=== PATIENT | female | born 1985 | race Caucasian/White ===

== ENCOUNTER 2017-03-15 23:08 | Emergency (ER) | payer OTHER ==
[~2017-03-15] VITALS: Ht 160 cm; Wt 77.1 kg
[~2017-03-15 23:08] MED LIST: ACET325 PO; AMOX500 PO; Augmentin 875-1 EACH PO; Benadryl 5050 MG/ML IV; CEPH500 PO; CIPR250 PO; CLARITIN5 MG PO; CYAN500; CYCL10 PO; DEXA.5; DIPH50 PO; DOCU100 PO; Desyrel50 MG PO; Dexamethasone1 MG PO; FOLI1; GABA600 PO; GAVILAX17 GM PO; HYDACE5 PO; HYDACE5325 PO; HYDHCL25 PO; HYDMOR2 PO; IBUP600 PO; LANS15EC PO; LIDOCAINE5 GM TP; LORA.5 PO; METO10 PO; MULVITMIND PO; MULVITMINE; Milk Of Ma400 MG/5 M PO; NAPR500 PO; Norco 5-325 Ta1 EACH PO; OMEPRAZOLE MAGN20 MG PO; ONDA4 PO; ONDA4ODT PO; ONDA8 PO; ONDA8ODT MM; OSEL75CA PO; Ondansetron Odt8 MG PO; PHENERGAN; PRENATAL PO; PRENATAL VIT; PROC10 PO; PROM12.5S PR; PROM25 PO; PROM25S PR; PYRI50; Pepcid40 MG PO; Percocet 5-3251 EACH PO; Percocet 7.5-31 EACH PO; ROXICODONE5 MG PO; RXHYD5325 PO; SERT50 PO; SIME80CH PO; Tylenol325 MG PO; Verotin-Gr Cap1 EACH PO; WAL DRYL TOP; Zofran Odt4 MG PO; Zofran Odt4 MG SL
[2017-03-16] MEDS ORDERED: Cyclobenzaprine5 MG PO (19:27)
[2017-05-25] MEDS ORDERED: HERCEPTIN150 MG IV (10:26)
[2017-05-28] MEDS ORDERED: ONDA8 (14:22)
[2017-05-28] MEDS ORDERED: METO10 (14:22)
[2017-05-28] MEDS ORDERED: Ativan1 MG (14:23)
[2017-06-06] MEDS ORDERED: ONDA8 PO (17:09)
[2017-06-06] MEDS ORDERED: incentive spirometer (22:26)
[2017-06-06] MEDS ORDERED: PROC10 PO (22:26)
[2017-11-25] MEDS ORDERED: HERCEPTIN150 MG (14:41)
[2017-11-25] MEDS ORDERED: TAMO10 PO (14:41)
[2017-11-25] MEDS ORDERED: COMPAZINE10 MG PO (15:53)
== END 2017-03-16 01:56 | disposition home or self-care (01) ==
LOC: ER 23:08
DX: O99.89 Other specified diseases and conditions complicating pregnancy, childbirth and the puerperium (principal); M79.604 Pain in right leg; M79.605 Pain in left leg; R20.2 Paresthesia of skin; Z88.8 Allergy status to other drugs, medicaments and biological substances; O99.345 Other mental disorders complicating the puerperium; F32.9 Major depressive disorder, single episode, unspecified; Z85.3 Personal history of malignant neoplasm of breast
CPT/HCPCS: 99282

== ENCOUNTER 2017-03-16 16:14 | Emergency (ER) | payer OTHER ==
[~2017-03-16] VITALS: Ht 160 cm; Wt 77.1 kg
[2017-03-16 17:05] LABS: Calcium, Ionized (POC) 1.18 mmol/L (1.10-1.46); Chloride (POC) 101 mmol/L (98-108); Creatinine (POC) 0.7 mg/dL (0.6-1.0); Glucose (ISTAT POC) 103 mg/dL (70-99); Potassium (POC) 4.2 mmol/L (3.5-5.5); Sodium (POC) 140 mmol/L (135-148); Total CO2 (POC) 29 mmol/L (21-32)
[2017-03-16] MEDS ORDERED: Cyclobenzaprine5 MG PO (19:27)
[2017-05-25] MEDS ORDERED: HERCEPTIN150 MG IV (10:26)
[2017-05-28] MEDS ORDERED: ONDA8 (14:22)
[2017-05-28] MEDS ORDERED: METO10 (14:22)
[2017-05-28] MEDS ORDERED: Ativan1 MG (14:23)
[2017-06-06] MEDS ORDERED: ONDA8 PO (17:09)
[2017-06-06] MEDS ORDERED: PROC10 PO (22:26)
[2017-06-06] MEDS ORDERED: incentive spirometer (22:26)
[2017-11-25] MEDS ORDERED: TAMO10 PO (14:41)
[2017-11-25] MEDS ORDERED: HERCEPTIN150 MG (14:41)
[2017-11-25] MEDS ORDERED: COMPAZINE10 MG PO (15:53)
== END 2017-03-16 19:55 | disposition home or self-care (01) ==
LOC: ER 16:14
DX: O90.89 Other complications of the puerperium, not elsewhere classified (principal); M54.40 Lumbago with sciatica, unspecified side; O99.345 Other mental disorders complicating the puerperium; F32.9 Major depressive disorder, single episode, unspecified; Z90.13 Acquired absence of bilateral breasts and nipples; Z91.048 Other nonmedicinal substance allergy status; Z79.899 Other long term (current) drug therapy; Z85.3 Personal history of malignant neoplasm of breast
CPT/HCPCS: 80047; 85014; 96374; 96375; 96376; 99283; J1200; J1642; J1885; Q0163

== ENCOUNTER 2017-03-24 00:53 | Day surgery (SDC) | payer OTHER ==
[~2017-03-24 00:53] MED LIST changes: +Cyclobenzaprine5 MG PO
[2017-03-24 14:13] LABS: BASOPHILS ABSOLUTE AUTO 0.06 K/mm3 (0.00-0.23); BASOPHILS PERCENT AUTO 1 % (0-2); EOSINOPHILS ABSOLUTE AUTO 0.28 K/mm3 (0.00-0.68); EOSINOPHILS PERCENT AUTO 5 % (0-6); Hemoglobin 14.8 g/dL (11.5-16.0); IMMATURE GRAN ABSOLUTE AUTO 0.02 K/mm3 (0.00-0.10); IMMATURE GRAN PERCENT AUTO 0 % (0-1); LYMPHOCYTES ABSOLUTE AUTO 1.41 K/mm3 (0.84-5.20); LYMPHOCYTES PERCENT AUTO 23 % (21-46); MONOCYTES ABSOLUTE AUTO 0.45 K/mm3 (0.16-1.47); MONOCYTES PERCENT AUTO 7 % (4-13); Mean Corpuscular HGB 29.2 pg (26.0-34.0); Mean Corpuscular HGB Conc 33.6 g/dL (31.5-36.5); Mean Corpuscular Volume 87 fL (80-100); Mean Platelet Volume 9.6 fL (9.1-12.4); NEUTROPHILS ABSOLUTE AUTO 3.87 K/mm3 (1.96-9.15); NEUTROPHILS PERCENT AUTO 64 % (41-73); Platelet Count 220 K/mm3 (150-400); RDW Coefficient Variation 11.8 % (11.7-14.2); RDW Standard Deviation 37.9 fL (35.1-46.3); Red Blood Cell Count 5.07 M/mm3 (3.80-5.20); White Blood Cell Count 6.09 K/mm3 (4.00-11.30)
[2017-03-24 14:42] LABS: Percent Saturation 50.9 % (15.0-50.0)
[2017-03-24 15:23] LABS: Alanine Aminotransfer (ALT/SGP 106 U/L (12-78); Albumin/Globulin Ratio 1.2 (0.8-1.8); Alk Phos 133 U/L (50-136); Anion Gap 8 mmol/L (6-16); Aspartate Aminotrans (AST/SGOT 63 U/L (12-37); Bilirubin, Total 0.6 mg/dL (0.1-1.0); Blood Urea Nitrogen 10 mg/dL (8-24); Bun/Creatinine Ratio 18.2 (12.0-20.0); CO2, Blood 25 mmol/L (21-32); Calcium, Blood 8.9 mg/dL (8.5-10.1); Chloride, Blood 105 mmol/L (98-108); Creatinine, Blood 0.55 mg/dL (0.40-1.00); Globulin, Blood 3.3 g/dL (2.2-4.0); Glomerular Filtration Rate >60 (60-); Glucose, Blood 107 mg/dL (70-99); Potassium, Blood 3.8 mmol/L (3.5-5.5); Sodium, Blood 138 mmol/L (136-145); Total Protein, Blood 7.3 g/dL (6.4-8.2)
[2017-05-25] MEDS ORDERED: HERCEPTIN150 MG IV (10:26)
[2017-05-28] MEDS ORDERED: ONDA8 (14:22)
[2017-05-28] MEDS ORDERED: METO10 (14:22)
[2017-05-28] MEDS ORDERED: Ativan1 MG (14:23)
[2017-06-06] MEDS ORDERED: ONDA8 PO (17:09)
[2017-06-06] MEDS ORDERED: incentive spirometer (22:26)
[2017-06-06] MEDS ORDERED: PROC10 PO (22:26)
[2017-11-25] MEDS ORDERED: HERCEPTIN150 MG (14:41)
[2017-11-25] MEDS ORDERED: TAMO10 PO (14:41)
[2017-11-25] MEDS ORDERED: COMPAZINE10 MG PO (15:53)
== END 2017-03-24 13:59 | disposition home or self-care (01) ==
LOC: ATC 00:53
PROVIDERS: Internal Medicine Hematology & Oncology
DX: D50.9 Iron deficiency anemia, unspecified (principal); C50.811 Malignant neoplasm of overlapping sites of right female breast; C77.3 Secondary and unspecified malignant neoplasm of axilla and upper limb lymph nodes; Z15.01 Genetic susceptibility to malignant neoplasm of breast; Z17.0 Estrogen receptor positive status [ER+]; Z90.13 Acquired absence of bilateral breasts and nipples; Z90.722 Acquired absence of ovaries, bilateral; Z90.79 Acquired absence of other genital organ(s)
CPT/HCPCS: 36591; 80053; 82728; 83540; 83550; 85025; J1642

== ENCOUNTER 2017-04-21 00:15 | Day surgery (SDC) | payer OTHER ==
[2017-04-21 09:14] LABS: BASOPHILS ABSOLUTE AUTO 0.04 K/mm3 (0.00-0.23); BASOPHILS PERCENT AUTO 1 % (0-2); EOSINOPHILS ABSOLUTE AUTO 0.13 K/mm3 (0.00-0.68); EOSINOPHILS PERCENT AUTO 3 % (0-6); Hematocrit 38.1 % (33.0-51.0); Hemoglobin 12.7 g/dL (11.5-16.0); IMMATURE GRAN ABSOLUTE AUTO 0.01 K/mm3 (0.00-0.10); IMMATURE GRAN PERCENT AUTO 0 % (0-1); LYMPHOCYTES ABSOLUTE AUTO 1.05 K/mm3 (0.84-5.20); LYMPHOCYTES PERCENT AUTO 25 % (21-46); MONOCYTES ABSOLUTE AUTO 0.34 K/mm3 (0.16-1.47); MONOCYTES PERCENT AUTO 8 % (4-13); Mean Corpuscular HGB 28.5 pg (26.0-34.0); Mean Corpuscular HGB Conc 33.3 g/dL (31.5-36.5); Mean Corpuscular Volume 86 fL (80-100); Mean Platelet Volume 9.8 fL (9.1-12.4); NEUTROPHILS ABSOLUTE AUTO 2.63 K/mm3 (1.96-9.15); NEUTROPHILS PERCENT AUTO 63 % (41-73); Platelet Count 210 K/mm3 (150-400); RDW Coefficient Variation 11.9 % (11.7-14.2); RDW Standard Deviation 37.3 fL (35.1-46.3); Red Blood Cell Count 4.45 M/mm3 (3.80-5.20)
[2017-04-21 09:34] LABS: Alanine Aminotransfer (ALT/SGP 57 U/L (12-78); Albumin, Blood 3.7 g/dL (3.4-5.0); Albumin/Globulin Ratio 1.2 (0.8-1.8); Alk Phos 94 U/L (50-136); Anion Gap 7 mmol/L (6-16); Aspartate Aminotrans (AST/SGOT 27 U/L (12-37); Bilirubin, Total 0.5 mg/dL (0.1-1.0); Blood Urea Nitrogen 16 mg/dL (8-24); Bun/Creatinine Ratio 24.6 (12.0-20.0); CO2, Blood 26 mmol/L (21-32); Calcium, Blood 8.6 mg/dL (8.5-10.1); Chloride, Blood 107 mmol/L (98-108); Creatinine, Blood 0.65 mg/dL (0.40-1.00); Globulin, Blood 3.2 g/dL (2.2-4.0); Glomerular Filtration Rate >60 (60-); Glucose, Blood 93 mg/dL (70-99); Potassium, Blood 3.8 mmol/L (3.5-5.5); Sodium, Blood 140 mmol/L (136-145); Total Protein, Blood 6.9 g/dL (6.4-8.2)
[2017-05-25] MEDS ORDERED: HERCEPTIN150 MG IV (10:26)
[2017-05-28] MEDS ORDERED: ONDA8 (14:22)
[2017-05-28] MEDS ORDERED: METO10 (14:22)
[2017-05-28] MEDS ORDERED: Ativan1 MG (14:23)
[2017-06-06] MEDS ORDERED: ONDA8 PO (17:09)
[2017-06-06] MEDS ORDERED: incentive spirometer (22:26)
[2017-06-06] MEDS ORDERED: PROC10 PO (22:26)
[2017-11-25] MEDS ORDERED: HERCEPTIN150 MG (14:41)
[2017-11-25] MEDS ORDERED: TAMO10 PO (14:41)
[2017-11-25] MEDS ORDERED: COMPAZINE10 MG PO (15:53)
== END 2017-04-21 09:15 | disposition home or self-care (01) ==
LOC: ATC 00:15
PROVIDERS: Internal Medicine Hematology & Oncology
DX: D50.9 Iron deficiency anemia, unspecified (principal); C50.811 Malignant neoplasm of overlapping sites of right female breast; Z15.01 Genetic susceptibility to malignant neoplasm of breast; Z17.0 Estrogen receptor positive status [ER+]; F41.9 Anxiety disorder, unspecified; Z90.13 Acquired absence of bilateral breasts and nipples
CPT/HCPCS: 36591; 80053; 85025

== ENCOUNTER → 2017-04-22 | Outpatient (CLI) | payer OTHER ==
[~2017-04-22] MED LIST changes: +Ativan1 MG; +COMPAZINE10 MG PO; +HERCEPTIN150 MG; +HERCEPTIN150 MG IV; +LORTAB 10 MG-3473 ML PO; +METO10; +ONDA8; +TAMO10 PO; +ZADITOR5 ML BOTHEYES; +incentive spirometer
[2017-04-22 19:23] LABS: BASOPHILS ABSOLUTE AUTO 0.01 K/mm3 (0.00-0.23); BASOPHILS PERCENT AUTO 0 % (0-2); EOSINOPHILS ABSOLUTE AUTO 0.02 K/mm3 (0.00-0.68); EOSINOPHILS PERCENT AUTO 1 % (0-6); Hematocrit 37.8 % (33.0-51.0); IMMATURE GRAN ABSOLUTE AUTO 0.01 K/mm3 (0.00-0.10); IMMATURE GRAN PERCENT AUTO 0 % (0-1); LYMPHOCYTES ABSOLUTE AUTO 0.53 K/mm3 (0.84-5.20); LYMPHOCYTES PERCENT AUTO 14 % (21-46); MONOCYTES ABSOLUTE AUTO 0.37 K/mm3 (0.16-1.47); MONOCYTES PERCENT AUTO 9 % (4-13); Mean Corpuscular HGB 29.1 pg (26.0-34.0); Mean Corpuscular HGB Conc 34.4 g/dL (31.5-36.5); Mean Corpuscular Volume 85 fL (80-100); Mean Platelet Volume 9.9 fL (9.1-12.4); NEUTROPHILS PERCENT AUTO 76 % (41-73); Platelet Count 192 K/mm3 (150-400); RDW Coefficient Variation 12.3 % (11.7-14.2); RDW Standard Deviation 37.2 fL (35.1-46.3); Red Blood Cell Count 4.47 M/mm3 (3.80-5.20); White Blood Cell Count 3.94 K/mm3 (4.00-11.30)
== END | disposition home or self-care (01) ==
LOC: LAB EV 19:20
PROVIDERS: Family Medicine
DX: R11.2 Nausea with vomiting, unspecified (principal)
CPT/HCPCS: 85025

== ENCOUNTER 2017-06-05 00:36 | Day surgery (SDC) | payer OTHER ==
[~2017-06-05 00:36] MED LIST changes: -COMPAZINE10 MG PO; -HERCEPTIN150 MG; -LORTAB 10 MG-3473 ML PO; -TAMO10 PO; -ZADITOR5 ML BOTHEYES; -incentive spirometer
[2017-06-06] MEDS ORDERED: ONDA8 PO (17:09)
[2017-06-06] MEDS ORDERED: incentive spirometer (22:26)
[2017-06-06] MEDS ORDERED: PROC10 PO (22:26)
== END 2017-06-05 10:10 | disposition home or self-care (01) ==
LOC: ATC 00:36
DX: C50.911 Malignant neoplasm of unspecified site of right female breast (principal); Z15.01 Genetic susceptibility to malignant neoplasm of breast; Z17.0 Estrogen receptor positive status [ER+]; D50.9 Iron deficiency anemia, unspecified; F41.9 Anxiety disorder, unspecified; Z90.13 Acquired absence of bilateral breasts and nipples
CPT/HCPCS: 96523; J1642

== ENCOUNTER 2017-06-05 11:10 | Day surgery (SDC) | payer OTHER ==
[~2017-06-05] VITALS: Ht 162.6 cm; Wt 75.6 kg
[2017-06-06] MEDS ORDERED: ONDA8 PO (17:09)
[2017-06-06] MEDS ORDERED: PROC10 PO (22:26)
[2017-06-06] MEDS ORDERED: incentive spirometer (22:26)
== END 2017-06-05 16:40 | disposition home or self-care (01) ==
LOC: ORSCSDS 11:10
PROVIDERS: Obstetrics & Gynecology
PROC: 0U5F4ZZ Destruction of Cul-de-sac, Percutaneous Endoscopic Approach (ICD-10-PCS; principal; 2017-06-05 12:30)
PROC: 0UT04ZZ Resection of Right Ovary, Percutaneous Endoscopic Approach (ICD-10-PCS; principal; 2017-06-05 12:30)
DX: N83.11 Corpus luteum cyst of right ovary (principal); N80.3 Endometriosis of pelvic peritoneum; K66.0 Peritoneal adhesions (postprocedural) (postinfection); Z79.899 Other long term (current) drug therapy; Z85.3 Personal history of malignant neoplasm of breast
CPT/HCPCS: 88305; J0171; J0690; J1170; J1200; J1642; J2250; J2405; J2550; J2710; J3010; J7120

== ENCOUNTER 2017-07-31 00:22 | Day surgery (SDC) | payer OTHER ==
[~2017-07-31 00:22] MED LIST changes: +incentive spirometer
== END 2017-07-31 09:24 | disposition home or self-care (01) ==
LOC: ATC 00:22
DX: C50.911 Malignant neoplasm of unspecified site of right female breast (principal); Z15.01 Genetic susceptibility to malignant neoplasm of breast; Z17.0 Estrogen receptor positive status [ER+]
CPT/HCPCS: 96523; J1642

== ENCOUNTER 2017-08-21 18:54 | Emergency (ER) | payer OTHER ==
[~2017-08-21] VITALS: Ht 162.6 cm; Wt 72.6 kg
[2017-08-21] MEDS ORDERED: DOCU100 PO (19:19)
[2017-08-21] MEDS ORDERED: PROM25 PO (19:19)
[2017-08-21] MEDS ORDERED: CEPH500 PO (19:20)
[2017-08-21] MEDS ORDERED: LORTAB 10 MG-3473 ML PO (21:09)
[2017-08-22] MEDS ORDERED: ZADITOR5 ML BOTHEYES (17:46)
== END 2017-08-21 21:27 | disposition home or self-care (01) ==
LOC: ER 18:54
DX: G89.18 Other acute postprocedural pain (principal); N64.4 Mastodynia; Z91.048 Other nonmedicinal substance allergy status; Z79.899 Other long term (current) drug therapy; Z79.2 Long term (current) use of antibiotics; F32.9 Major depressive disorder, single episode, unspecified; F41.9 Anxiety disorder, unspecified
CPT/HCPCS: J1200; J1642; J2405; J3010

== ENCOUNTER 2017-08-22 13:07 | Emergency (ER) | payer OTHER ==
[~2017-08-22] VITALS: Ht 162.6 cm; Wt 72.6 kg
[~2017-08-22 13:07] MED LIST changes: +LORTAB 10 MG-3473 ML PO
[2017-08-22 15:21] LABS: BASOPHILS ABSOLUTE AUTO 0.04 K/mm3 (0.00-0.23); BASOPHILS PERCENT AUTO 1 % (0-2); EOSINOPHILS ABSOLUTE AUTO 0.28 K/mm3 (0.00-0.68); EOSINOPHILS PERCENT AUTO 4 % (0-6); Hematocrit 36.3 % (33.0-51.0); Hemoglobin 12.6 g/dL (11.5-16.0); IMMATURE GRAN ABSOLUTE AUTO 0.03 K/mm3 (0.00-0.10); IMMATURE GRAN PERCENT AUTO 0 % (0-1); LYMPHOCYTES ABSOLUTE AUTO 1.29 K/mm3 (0.84-5.20); LYMPHOCYTES PERCENT AUTO 17 % (21-46); MONOCYTES ABSOLUTE AUTO 0.53 K/mm3 (0.16-1.47); MONOCYTES PERCENT AUTO 7 % (4-13); Mean Corpuscular HGB 30.4 pg (26.0-34.0); Mean Corpuscular HGB Conc 34.7 g/dL (31.5-36.5); Mean Corpuscular Volume 88 fL (80-100); Mean Platelet Volume 9.9 fL (9.1-12.4); NEUTROPHILS ABSOLUTE AUTO 5.62 K/mm3 (1.96-9.15); NEUTROPHILS PERCENT AUTO 72 % (41-73); Platelet Count 198 K/mm3 (150-400); RDW Coefficient Variation 11.6 % (11.7-14.2); RDW Standard Deviation 37.1 fL (35.1-46.3); Red Blood Cell Count 4.14 M/mm3 (3.80-5.20); White Blood Cell Count 7.79 K/mm3 (4.00-11.30)
[2017-08-22 15:47] LABS: Alanine Aminotransfer (ALT/SGP 44 U/L (12-78); Albumin, Blood 3.9 g/dL (3.4-5.0); Albumin/Globulin Ratio 1.2 (0.8-1.8); Alk Phos 68 U/L (50-136); Anion Gap 6 mmol/L (6-16); Aspartate Aminotrans (AST/SGOT 43 U/L (12-37); Bilirubin, Total 0.4 mg/dL (0.1-1.0); Blood Urea Nitrogen 9 mg/dL (8-24); Bun/Creatinine Ratio 12.6 (12.0-20.0); CO2, Blood 28 mmol/L (21-32); Calcium, Blood 9.1 mg/dL (8.5-10.1); Chloride, Blood 105 mmol/L (98-108); Creatinine, Blood 0.71 mg/dL (0.40-1.00); Globulin, Blood 3.3 g/dL (2.2-4.0); Glomerular Filtration Rate >60 (60-); Glucose, Blood 96 mg/dL (70-99); Potassium, Blood 3.9 mmol/L (3.5-5.5); Sodium, Blood 139 mmol/L (136-145); Total Protein, Blood 7.2 g/dL (6.4-8.2)
[2017-08-22] MEDS ORDERED: ZADITOR5 ML BOTHEYES (17:46)
== END 2017-08-22 18:00 | disposition home or self-care (01) ==
LOC: ER 13:07
PROVIDERS: Physician Assistant
DX: G89.18 Other acute postprocedural pain (principal); N64.4 Mastodynia; H10.13 Acute atopic conjunctivitis, bilateral; F32.9 Major depressive disorder, single episode, unspecified; Z91.048 Other nonmedicinal substance allergy status; Z79.899 Other long term (current) drug therapy
CPT/HCPCS: 80053; 85025; J1200; J1642; J2405; J2550; J3010; J7030

== ENCOUNTER 2017-09-29 08:07 | Day surgery (SDC) | payer OTHER ==
[~2017-09-29] VITALS: Ht 162.6 cm; Wt 64.4 kg
[~2017-09-29 08:07] MED LIST changes: +ZADITOR5 ML BOTHEYES
== END 2017-09-29 10:40 | disposition home or self-care (01) ==
LOC: ORSCSDS 08:07
PROVIDERS: Internal Medicine Gastroenterology
PROC: 0DJD8ZZ Inspection of Lower Intestinal Tract, Via Natural or Artificial Opening Endoscopic (ICD-10-PCS; principal; 2017-09-29 09:45)
DX: Z86.010 Personal history of colon polyps (principal); K64.4 Residual hemorrhoidal skin tags; Z85.3 Personal history of malignant neoplasm of breast; Z79.899 Other long term (current) drug therapy
CPT/HCPCS: J1200; J7120

== ENCOUNTER 2017-10-20 00:01 | Day surgery (SDC) | payer OTHER ==
[2017-10-20 08:30] LABS: BASOPHILS ABSOLUTE AUTO 0.03 K/mm3 (0.00-0.23); BASOPHILS PERCENT AUTO 1 % (0-2); EOSINOPHILS ABSOLUTE AUTO 0.14 K/mm3 (0.00-0.68); EOSINOPHILS PERCENT AUTO 3 % (0-6); Hematocrit 34.4 % (33.0-51.0); Hemoglobin 11.8 g/dL (11.5-16.0); IMMATURE GRAN ABSOLUTE AUTO 0.01 K/mm3 (0.00-0.10); IMMATURE GRAN PERCENT AUTO 0 % (0-1); LYMPHOCYTES ABSOLUTE AUTO 0.91 K/mm3 (0.84-5.20); LYMPHOCYTES PERCENT AUTO 22 % (21-46); MONOCYTES ABSOLUTE AUTO 0.31 K/mm3 (0.16-1.47); MONOCYTES PERCENT AUTO 8 % (4-13); Mean Corpuscular HGB 30.6 pg (26.0-34.0); Mean Corpuscular HGB Conc 34.3 g/dL (31.5-36.5); Mean Corpuscular Volume 89 fL (80-100); Mean Platelet Volume 9.6 fL (9.1-12.4); NEUTROPHILS ABSOLUTE AUTO 2.67 K/mm3 (1.96-9.15); NEUTROPHILS PERCENT AUTO 66 % (41-73); Platelet Count 177 K/mm3 (150-400); RDW Coefficient Variation 12.5 % (11.7-14.2); RDW Standard Deviation 41.2 fL (35.1-46.3); Red Blood Cell Count 3.85 M/mm3 (3.80-5.20); White Blood Cell Count 4.07 K/mm3 (4.00-11.30)
[2017-10-20 08:52] LABS: Alanine Aminotransfer (ALT/SGP 31 U/L (12-78); Albumin, Blood 3.5 g/dL (3.4-5.0); Albumin/Globulin Ratio 1.3 (0.8-1.8); Alk Phos 55 U/L (50-136); Anion Gap 8 mmol/L (6-16); Aspartate Aminotrans (AST/SGOT 18 U/L (12-37); Bilirubin, Total 0.6 mg/dL (0.1-1.0); Blood Urea Nitrogen 12 mg/dL (8-24); Bun/Creatinine Ratio 18.4 (12.0-20.0); CO2, Blood 26 mmol/L (21-32); Calcium, Blood 7.7 mg/dL (8.5-10.1); Chloride, Blood 110 mmol/L (98-108); Creatinine, Blood 0.65 mg/dL (0.40-1.00); Globulin, Blood 2.7 g/dL (2.2-4.0); Glomerular Filtration Rate >60 (60-); Glucose, Blood 97 mg/dL (70-99); Potassium, Blood 3.5 mmol/L (3.5-5.5); Sodium, Blood 144 mmol/L (136-145); Total Protein, Blood 6.2 g/dL (6.4-8.2)
== END 2017-10-20 08:10 | disposition home or self-care (01) ==
LOC: ATC 00:01
PROVIDERS: Internal Medicine Hematology & Oncology
DX: C50.811 Malignant neoplasm of overlapping sites of right female breast (principal); Z15.01 Genetic susceptibility to malignant neoplasm of breast; Z17.0 Estrogen receptor positive status [ER+]
CPT/HCPCS: 36591; 80053; 85025; J1642

== ENCOUNTER 2018-03-17 00:13 | Day surgery (SDC) | payer OTHER ==
[~2018-03-17 00:13] MED LIST changes: +COMPAZINE10 MG PO; +HERCEPTIN150 MG; +TAMO10 PO
[2018-03-17 14:31] LABS: BASOPHILS ABSOLUTE AUTO 0.04 K/mm3 (0.00-0.23); BASOPHILS PERCENT AUTO 1 % (0-2); EOSINOPHILS ABSOLUTE AUTO 0.05 K/mm3 (0.00-0.68); EOSINOPHILS PERCENT AUTO 1 % (0-6); Hemoglobin 12.8 g/dL (11.5-16.0); IMMATURE GRAN PERCENT AUTO 0 % (0-1); LYMPHOCYTES ABSOLUTE AUTO 1.11 K/mm3 (0.84-5.20); LYMPHOCYTES PERCENT AUTO 27 % (21-46); MONOCYTES ABSOLUTE AUTO 0.35 K/mm3 (0.16-1.47); MONOCYTES PERCENT AUTO 9 % (4-13); Mean Corpuscular HGB 29.8 pg (26.0-34.0); Mean Corpuscular HGB Conc 32.8 g/dL (31.5-36.5); Mean Corpuscular Volume 91 fL (80-100); Mean Platelet Volume 9.8 fL (9.1-12.4); NEUTROPHILS ABSOLUTE AUTO 2.53 K/mm3 (1.96-9.15); NEUTROPHILS PERCENT AUTO 62 % (41-73); Platelet Count 245 K/mm3 (150-400); RDW Coefficient Variation 11.3 % (11.7-14.2); White Blood Cell Count 4.08 K/mm3 (4.00-11.30)
[2018-03-17 14:59] LABS: Alanine Aminotransfer (ALT/SGP 38 U/L (12-78); Albumin, Blood 4.4 g/dL (3.4-5.0); Albumin/Globulin Ratio 1.5 (0.8-1.8); Alk Phos 46 U/L (50-136); Anion Gap 9 mmol/L (6-16); Aspartate Aminotrans (AST/SGOT 22 U/L (12-37); Bilirubin, Total 0.9 mg/dL (0.1-1.0); Blood Urea Nitrogen 7 mg/dL (8-24); Bun/Creatinine Ratio 9.5 (12.0-20.0); CO2, Blood 26 mmol/L (21-32); Calcium, Blood 9.1 mg/dL (8.5-10.1); Chloride, Blood 106 mmol/L (98-108); Creatinine, Blood 0.74 mg/dL (0.40-1.00); Globulin, Blood 2.9 g/dL (2.2-4.0); Glomerular Filtration Rate >60 (60-); Glucose, Blood 79 mg/dL (70-99); Potassium, Blood 3.7 mmol/L (3.5-5.5); Sodium, Blood 141 mmol/L (136-145); Total Protein, Blood 7.3 g/dL (6.4-8.2)
[2018-03-22] MEDS ORDERED: Zithromax250 MG PO (23:29)
[2018-03-22] MEDS ORDERED: BENZ100A PO (23:30)
== END 2018-03-17 14:25 | disposition home or self-care (01) ==
LOC: ATC 00:13
PROVIDERS: Internal Medicine Hematology & Oncology
DX: C50.811 Malignant neoplasm of overlapping sites of right female breast (principal); Z15.01 Genetic susceptibility to malignant neoplasm of breast; Z17.0 Estrogen receptor positive status [ER+]
CPT/HCPCS: 36591; 80053; 85025; J1642

== ENCOUNTER → 2018-03-22 | Outpatient (CLI) | payer OTHER ==
[~2018-03-22] MED LIST changes: +**INCOMPLETE MED REC; +ALBU90OI INH; +ASCO500 PO; +AZIT500 PO; +Acephen650 MG PR; +Advil Migraine200 MG PO; +Allergy Medicat25 MG PO; +BENZ100A PO; +Benadryl Itch28.3 G1 TOP; +CEFP200 PO; +Ferrous Sulfat325 M2 PO; +METO5A PO; +Mucinex1200 MG PO; +PROC5 PO; +ROBITUSSIN COU237 ML PO; +Zithromax250 MG PO
[2018-03-22 10:07] LABS: Hematocrit 36.5 % (33.0-51.0); Hemoglobin 12.2 g/dL (11.5-16.0); Mean Corpuscular HGB 29.3 pg (26.0-34.0); Mean Corpuscular HGB Conc 33.4 g/dL (31.5-36.5); Platelet Count 173 K/mm3 (150-400); RDW Coefficient Variation 11.6 % (11.7-14.2); RDW Standard Deviation 37.3 fL (35.1-46.3); Red Blood Cell Count 4.16 M/mm3 (3.80-5.20); White Blood Cell Count 10.13 K/mm3 (4.00-11.30)
[2018-03-22 10:20] LABS: Mean Corpuscular Volume 88 fL (80-100)
[2018-03-22 10:22] LABS: BAND PERCENT MAN 10 % (0-8); BASOPHILS PERCENT MAN 0 % (0-2); EOSINOPHILS PERCENT MAN 0 % (0-6); LYMPHOCYTES % ATYPICAL MANUAL 1 % (0-0); MONOCYTES PERCENT MAN 5 % (4-13); NEUTROPHILS ABSOLUTE MAN 9.52 K/mm3 (1.96-9.15); SEG NEUTROPHILS PERCENT MAN 84 % (41-73); TOTAL CELLS COUNTED 100
[2018-03-22 10:36] LABS: Alanine Aminotransfer (ALT/SGP 28 U/L (12-78); Albumin, Blood 4.2 g/dL (3.4-5.0); Albumin/Globulin Ratio 1.8 (0.8-1.8); Alk Phos 49 U/L (40-126); Anion Gap 15 mmol/L (6-16); Aspartate Aminotrans (AST/SGOT 18 U/L (12-37); Bilirubin, Total 0.6 mg/dL (0.1-1.0); Blood Urea Nitrogen 9 mg/dL (8-24); Bun/Creatinine Ratio 12.5 (12.0-20.0); CO2, Blood 23 mmol/L (21-32); Calcium, Blood 8.3 mg/dL (8.5-10.1); Chloride, Blood 100 mmol/L (98-108); Creatinine, Blood 0.72 mg/dL (0.40-1.00); Globulin, Blood 2.4 g/dL (2.2-4.0); Glomerular Filtration Rate >60 (60-); Glucose, Blood 94 mg/dL (70-99); Potassium, Blood 3.6 mmol/L (3.5-5.5); Sodium, Blood 138 mmol/L (136-145); Total Protein, Blood 6.6 g/dL (6.4-8.2)
== END | disposition home or self-care (01) ==
LOC: LAB SHORT 10:03 → LAB EV 10:03
PROVIDERS: Physician Assistant
DX: R50.9 Fever, unspecified (principal)
CPT/HCPCS: 80053; 85025; 87040

== ENCOUNTER 2018-03-23 15:02 | Inpatient (IN) | payer OTHER ==
[~2018-03-23] VITALS: Ht 162.6 cm; Wt 66.4 kg
[~2018-03-23 15:02] MED LIST changes: -**INCOMPLETE MED REC; -ALBU90OI INH; -ASCO500 PO; -AZIT500 PO; -Acephen650 MG PR; -Advil Migraine200 MG PO; -Allergy Medicat25 MG PO; -Benadryl Itch28.3 G1 TOP; -CEFP200 PO; -Ferrous Sulfat325 M2 PO; -METO5A PO; -Mucinex1200 MG PO; -PROC5 PO; -ROBITUSSIN COU237 ML PO
[2018-03-23 15:50] LABS: BASOPHILS ABSOLUTE AUTO 0.02 K/mm3 (0.00-0.23); BASOPHILS PERCENT AUTO 0 % (0-2); EOSINOPHILS ABSOLUTE AUTO 0.04 K/mm3 (0.00-0.68); EOSINOPHILS PERCENT AUTO 1 % (0-6); Hematocrit 33.9 % (33.0-51.0); Hemoglobin 10.8 g/dL (11.5-16.0); IMMATURE GRAN ABSOLUTE AUTO 0.01 K/mm3 (0.00-0.10); IMMATURE GRAN PERCENT AUTO 0 % (0-1); LYMPHOCYTES ABSOLUTE AUTO 0.89 K/mm3 (0.84-5.20); LYMPHOCYTES PERCENT AUTO 14 % (21-46); MONOCYTES ABSOLUTE AUTO 0.43 K/mm3 (0.16-1.47); MONOCYTES PERCENT AUTO 7 % (4-13); Mean Corpuscular HGB 29.5 pg (26.0-34.0); Mean Corpuscular HGB Conc 31.9 g/dL (31.5-36.5); Mean Corpuscular Volume 93 fL (80-100); Mean Platelet Volume 10.1 fL (9.1-12.4); NEUTROPHILS ABSOLUTE AUTO 4.98 K/mm3 (1.96-9.15); NEUTROPHILS PERCENT AUTO 78 % (41-73); Platelet Count 167 K/mm3 (150-400); RDW Coefficient Variation 11.5 % (11.7-14.2); RDW Standard Deviation 38.9 fL (35.1-46.3); Red Blood Cell Count 3.66 M/mm3 (3.80-5.20); White Blood Cell Count 6.37 K/mm3 (4.00-11.30)
[2018-03-23 16:14] LABS: Alanine Aminotransfer (ALT/SGP 40 U/L (12-78); Albumin, Blood 3.5 g/dL (3.4-5.0); Albumin/Globulin Ratio 1.2 (0.8-1.8); Alk Phos 51 U/L (50-136); Anion Gap 5 mmol/L (6-16); Aspartate Aminotrans (AST/SGOT 33 U/L (12-37); Bilirubin, Total 0.2 mg/dL (0.1-1.0); Blood Urea Nitrogen 5 mg/dL (8-24); Bun/Creatinine Ratio 7.5 (12.0-20.0); CO2, Blood 27 mmol/L (21-32); Calcium, Blood 8.1 mg/dL (8.5-10.1); Chloride, Blood 110 mmol/L (98-108); Creatinine, Blood 0.67 mg/dL (0.40-1.00); Globulin, Blood 2.8 g/dL (2.2-4.0); Glomerular Filtration Rate >60 (60-); Glucose, Blood 87 mg/dL (70-99); Potassium, Blood 3.5 mmol/L (3.5-5.5); Sodium, Blood 142 mmol/L (136-145); Total Protein, Blood 6.3 g/dL (6.4-8.2)
[2018-03-23] MEDS ORDERED: **INCOMPLETE MED REC (18:08)
[2018-03-23 23:12] LABS: Adenovirus Not Detected (NOT DETECT); Bordetella pertussis Not Detected (NOT DETECT); Chlamydophila pneumoniae Not Detected (NOT DETECT); Coronavirus 229E Not Detected (NOT DETECT); Coronavirus HKU1 Not Detected (NOT DETECT); Coronavirus NL63 Detected (NOT DETECT); Coronavirus OC43 Not Detected (NOT DETECT); Human Metapneumovirus Not Detected (NOT DETECT); Human Rhinovirus/Enterovirus Not Detected (NOT DETECT); Influenza A Not Detected (NOT DETECT); Influenza A/2009-H1 Not Detected (NOT DETECT); Influenza A/H1 Not Detected (NOT DETECT); Influenza A/H3 Not Detected (NOT DETECT); Influenza B Not Detected (NOT DETECT); Mycoplasma pneumoniae Not Detected (NOT DETECT); Parainfluenza Virus 1 Not Detected (NOT DETECT); Parainfluenza Virus 2 Not Detected (NOT DETECT); Parainfluenza Virus 3 Not Detected (NOT DETECT); Parainfluenza Virus 4 Not Detected (NOT DETECT); Respiratory Syncytial Virus Not Detected (NOT DETECT)
--- NOTE | 2018-03-23 23:12 | NUR ---
PT VERY UPSET THAT MD WILL NOT ORDER HER ANY NARCOTIC IV PAIN MEDICATION. SHE REPORTS THAT SHE IS VERY ACHEY ALL OVER BODY. THIS ACHINESS IS NOT NEW TO HER SHE IS ON A POST CHEMO MEDICATION THAT CAUSES BODY ACHES. BUT THE PT REPORTS THAT IT IS WORSE AT THIS TIME THAN NORMALLY. NOTIFIED KIM MADRID WHO GAVE ORDERS FOR PO TYLENOL. PT REFUSED TO TAKE ANY MEDICATION ORALLY AND PT HAD RECIEVED A DOSE OF TORADOL IN THE EMERGENCY DEPARTMENT THAT WAS INEFFECTIVE PER PT. PT PRODUCED HOME MEDICATION BOTTLE WITH PRESCRIPTION FOR DILAUDID PO BUT THE PRESCRIPTION WAS FROM 2017. CALLED KIM MADRID AGAIN WHO STATED THAT NARCOTIC PAIN MEDICATION WOULD BE INAPPROPRIATE FOR THIS PT AT THIS TIME. WHEN PT WAS GOING THROUGH CHEMO FOR BREAST CA IT WOULD HAVE BEEN APPROPRIATE BUT SINCE PT HAS NOT HAD CHEMO FOR 1 YEAR AND DOES NOT HAVE ANY PROOF OF ACTIVE PRESCRIPTIONS FOR NARCOTICS KIM MADRID FELT IT INAPPROPRIATE TO ORDER ANY NARCOTICS FOR PAIN MANAGEMENT AT THIS TIME. INFORMED PT OF THIS. PT UPSET BUT COOPERATIVE AT THIS TIME.
--- NOTE | 2018-03-23 23:47 | NUR ---
KIM CLERICAL AIDE TEACHER CALLED TO FOLLOWUP ON HOW PT WAS FEELING. NEW ORDERS FOR DILAUDID 1 MG IV Q 2 HRS NEEDED. PT VERY UNCOMFORTABLE, REPORTING 7/10 "ALL OVER" PAIN CONTINUING TO COUGH AND AT TIMES DRY HEAVE. MEDICATED PT W/ 1 MG IV DILAUDID AND 4 MG IV ZOFRAN. WILL CONTINUE TO MONITOR.
[2018-03-24 04:54] LABS: BASOPHILS ABSOLUTE AUTO 0.02 K/mm3 (0.00-0.23); BASOPHILS PERCENT AUTO 1 % (0-2); EOSINOPHILS ABSOLUTE AUTO 0.06 K/mm3 (0.00-0.68); EOSINOPHILS PERCENT AUTO 2 % (0-6); Hematocrit 31.3 % (33.0-51.0); Hemoglobin 9.8 g/dL (11.5-16.0); IMMATURE GRAN ABSOLUTE AUTO 0.01 K/mm3 (0.00-0.10); IMMATURE GRAN PERCENT AUTO 0 % (0-1); LYMPHOCYTES ABSOLUTE AUTO 1.09 K/mm3 (0.84-5.20); LYMPHOCYTES PERCENT AUTO 27 % (21-46); MONOCYTES ABSOLUTE AUTO 0.49 K/mm3 (0.16-1.47); MONOCYTES PERCENT AUTO 12 % (4-13); Mean Corpuscular HGB 29.3 pg (26.0-34.0); Mean Corpuscular HGB Conc 31.3 g/dL (31.5-36.5); Mean Corpuscular Volume 93 fL (80-100); Mean Platelet Volume 10.1 fL (9.1-12.4); NEUTROPHILS ABSOLUTE AUTO 2.45 K/mm3 (1.96-9.15); NEUTROPHILS PERCENT AUTO 59 % (41-73); Platelet Count 146 K/mm3 (150-400); RDW Coefficient Variation 11.5 % (11.7-14.2); RDW Standard Deviation 39.7 fL (35.1-46.3); Red Blood Cell Count 3.35 M/mm3 (3.80-5.20); White Blood Cell Count 4.12 K/mm3 (4.00-11.30)
--- NOTE | 2018-03-24 05:14 | NUR ---
SHIFT SUMMARY PT NEW ED ADMIT THIS EVENING. A/O. AMBULATES INDEPENDENTLY. OVERALL FEELING MISERABLE WITH BODY ACHES AND NAUSEA. SEE PREVIOUS NOTES. PAIN AND ANTIEMETIC MEDICATION GIVEN PER ORDERS. PT HAS HX OF BREAST CA WITH DOUBLE MASTECTOMY WITH RECONSTRUCTION AND CHEMO APPROX 1 YEAR AGO. PORT TO L CHEST WALL ACCESSED IN OUR ED ON Thursday03/22/18. SKIN RED AND IRRITATED BY TEGADERM DRESSING OVER METAPORT. THIS IS COMMON FOR PT AND HAPPENS EVERYTIME PORT IS ACCESSED. BENADRYL CREAM PLACED ON SKIN AROUND DRESSING AND APPEARS TO HAVE HELPED. PT HAS BEEN NAUSEATED OFF AND ON THROUGHOUT THE SHIFT BUT NO EMESIS SO FAR. VOIDING FINE. LOW GRADE FEVER THAT HAS DECREASED THIS AM. PT REFUSED ORAL TYLENOL. SKIN DID NOT FEEL HOT TO TOUCH. OTHERWISE VSS. PT RESTING IN BED AT THIS TIME.
[2018-03-24 05:17] LABS: Alanine Aminotransfer (ALT/SGP 28 U/L (12-78); Albumin/Globulin Ratio 1.2 (0.8-1.8); Alk Phos 41 U/L (50-136); Anion Gap 8 mmol/L (6-16); Aspartate Aminotrans (AST/SGOT 21 U/L (12-37); Bilirubin, Total 0.4 mg/dL (0.1-1.0); Blood Urea Nitrogen 5 mg/dL (8-24); Bun/Creatinine Ratio 7.3 (12.0-20.0); CO2, Blood 25 mmol/L (21-32); Calcium, Blood 7.5 mg/dL (8.5-10.1); Chloride, Blood 113 mmol/L (98-108); Creatinine, Blood 0.69 mg/dL (0.40-1.00); Globulin, Blood 2.5 g/dL (2.2-4.0); Glomerular Filtration Rate >60 (60-); Glucose, Blood 69 mg/dL (70-99); Potassium, Blood 3.6 mmol/L (3.5-5.5); Sodium, Blood 146 mmol/L (136-145); Total Protein, Blood 5.5 g/dL (6.4-8.2)
--- NOTE | 2018-03-24 09:03 | NUR ---
pt laying in bed with coat and stocking cap on, she feels like she is cold, but she has a low grade temp. a/ox3, pleasant and cooperative with care, follows commands well, reports she feels like she has bone pain, and hurts all over, the dilaudid helps a bit but only for a short time, and constant nausia, not activly vomiting, but meds are not controlling that either, refusing to eat or take oral meds for fear of vomiting, lungs are clear t/o resp even and unlabored, harsh wet nonproductive cough noted, hrr, no edema noted, ppp+2, cap refill <3 sec, vs stable, afebrile, iv is mediport to left chest site is clear and infusing ns as ordered, bt x4, reports last bm yesterday, but has been a few days since eating anything, voids without diff, skin c/w/d, anthony, nakul, call light in reach.
--- NOTE | 2018-03-24 11:59 | NUR ---
pt had a shower, doing ok, states her pain never gets below a 5/10, Istrate in to see her. started clinimix for nutrition, medicated for pain again. no further changes. call light in reach.
--- NOTE | 2018-03-24 15:16 | NUR ---
Pt gave verbal permission for student to provide care on 03/25/18
--- NOTE | 2018-03-24 16:57 | NUR ---
FEVER PATIENT HAD FEVER OF 102.1. PATIENT DECLINED TYLENOL BECAUSE OF NAUSEA. WILL RECHECK TEMPERATURE.
--- NOTE | 2018-03-24 19:19 | NUR ---
SHIFT SUMMARY NO ACUTE CHANGES. PATIENT MEDICATED SEVERAL TIME DURING HSIFT FOR PAIN AND NAUSEA. PATIENT HAD FEVER OF 102.1 THIS AFTERNOON, DECLINED ORAL TYLENOL BUT IV TORADOL GIVEN. PATIENT INDEPENDENT IN ROOM AND DENIES SHORTNESS OF BREATH. REPORT GIVEN TO MAURICIO VARELA.
--- NOTE | 2018-03-25 04:13 | NUR ---
SHIFT SUMMARY A/O X4, ABLE TO MAKE NEEDS KNOWN. COOPERATIVE WITH CARE. CALLS AND ANSWERS QUESTIONS APPROPRIATELY. C/O PAIN THAT IS GENERALIZED RATED 7/10; MEDICATED PER EMAR. C/O NAUSEA AND ITCHING T/O SHIFT; MEDICATED PER EMAR. DID NOT REST MUCH OVERNIGHT. VSS AND REMAINED FEBRILE T/O SHIFT. C/O BEING COLD MUCH OF SHIFT. BED IN LOWEST POSITION. CALL LIGHT AND BELONGINGS WITHIN REACH. WCTM. REPORT TO ONCOMING RN.
[2018-03-25 05:19] LABS: BASOPHILS ABSOLUTE AUTO 0.03 K/mm3 (0.00-0.23); BASOPHILS PERCENT AUTO 1 % (0-2); EOSINOPHILS ABSOLUTE AUTO 0.11 K/mm3 (0.00-0.68); EOSINOPHILS PERCENT AUTO 3 % (0-6); Hematocrit 32.2 % (33.0-51.0); Hemoglobin 10.3 g/dL (11.5-16.0); IMMATURE GRAN ABSOLUTE AUTO 0.02 K/mm3 (0.00-0.10); IMMATURE GRAN PERCENT AUTO 1 % (0-1); LYMPHOCYTES ABSOLUTE AUTO 1.46 K/mm3 (0.84-5.20); LYMPHOCYTES PERCENT AUTO 34 % (21-46); MONOCYTES ABSOLUTE AUTO 0.46 K/mm3 (0.16-1.47); MONOCYTES PERCENT AUTO 11 % (4-13); Mean Corpuscular Volume 91 fL (80-100); Mean Platelet Volume 10.2 fL (9.1-12.4); NEUTROPHILS ABSOLUTE AUTO 2.22 K/mm3 (1.96-9.15); NEUTROPHILS PERCENT AUTO 52 % (41-73); Platelet Count 178 K/mm3 (150-400); RDW Coefficient Variation 11.1 % (11.7-14.2); RDW Standard Deviation 37.2 fL (35.1-46.3); Red Blood Cell Count 3.55 M/mm3 (3.80-5.20)
--- NOTE | 2018-03-25 11:24 | NUR ---
PATIENT TEARFUL, REQUESTING MORE PAIN MEDICATIONS. DR. SOLIS AT BEDSIDE PROVIDING INSTRUCTIONS ON PLAN OF CARE FOR DX OF PNEUMONIA. PATIENT D/C FROM DILAUDID. DR. SOLIS STATED THAT DILUADID IS NOT A REOCOMMENDED TX FOR THE DISCOMFORT CAUSED FROM PNEUMONIA. ENCOURAGED CONTINUE FLUID INTAKE AN SUPPLEMENTAL CLINIMIX. PATIENT REQUESTING TO HAVE A BREAK FROM FLUIDS AT THIS TIME.
--- NOTE | 2018-03-25 17:56 | NUR ---
WENT TO [facility]ANG PATIENT ANTIBIOTICS OFFERED REGLAN AND NSAIDS. PATIENT TOO ASLEEP TO WAKE TO ANSWER QUESTIONS. PATIENT IS BUNDLED UP IN MULTIPLE LAYERS, AT THIS TIME NO FEVER.
--- NOTE | 2018-03-25 18:45 | NUR ---
SHIFT SUMMARY PATIENT HAS REQUESTED PAIN MEDS FOR OVERALL BODY ACHES TODAY. (SEE PREVIOUS NOTES). PATIENT CURRENTLY SLEEPING ON AND OFF IN HER ROOM. MEDICATED PER EMAR. MEDICATED FOR NAUSEA AND REDNESS, ITCHING TO HER CHEST. IV ANTIBIOTICS RUNNING AT THIS TIME.
--- NOTE | 2018-03-26 05:02 | NUR ---
SHIFT SUMMARY A/O X4, ABLE TO MAKE NEEDS KNOWN. COOPERATIVE WITH CARE. CALLS AND ANSWERS QUESTIONS APPROPRIATELY. C/O PAIN/DISCOMFORT RATING PAIN 7/10; MEDICATED PER EMAR. C/O NAUSEA WITHOUT EMESIS; ALSO MEDICATED PER EMAR. APPEARED TO SLEEP MUCH OF SHIFT. INDEPENDENT IN THE ROOM. NO PO INTAKE THIS SHIFT. VSS/AFEBRILE. NO ACUTE CHANGES OVERNIGHT. BED IN LOWEST POSITION. CALL LIGHT IN REACH. WCTM. REPORT TO ONCOMING RN.
--- NOTE | 2018-03-26 18:37 | NUR ---
SHIFT SUMMARY: NO ACUTE CHANGES TO REPORT THIS SHIFT. PT A&O; ANXIOUS; COOPERATIVE WITH CARE. MEDICATED FOR NAUSEA W/O VOMITING PER EMAR. TYLENOL NV GIVEN THIS SHIFT; PT STATES TORADOL "DOESN'T WORK." CLINIMIX & NS CONTINUING; IV ABX CONTINUIG. WCTM.
[2018-03-27 05:38] LABS: Hematocrit 34.8 % (33.0-51.0); Hemoglobin 11.4 g/dL (11.5-16.0); Mean Corpuscular HGB 28.8 pg (26.0-34.0); Mean Corpuscular HGB Conc 32.8 g/dL (31.5-36.5); Platelet Count 195 K/mm3 (150-400); RDW Standard Deviation 35.7 fL (35.1-46.3); Red Blood Cell Count 3.96 M/mm3 (3.80-5.20); White Blood Cell Count 3.27 K/mm3 (4.00-11.30)
[2018-03-27 05:47] LABS: Mean Corpuscular Volume 88 fL (80-100)
[2018-03-27 06:12] LABS: Anion Gap 9 mmol/L (6-16); Blood Urea Nitrogen 13 mg/dL (8-24); Bun/Creatinine Ratio 20.9 (12.0-20.0); CO2, Blood 24 mmol/L (21-32); Calcium, Blood 8.1 mg/dL (8.5-10.1); Chloride, Blood 110 mmol/L (98-108); Creatinine, Blood 0.62 mg/dL (0.40-1.00); Glomerular Filtration Rate >60 (60-); Glucose, Blood 82 mg/dL (70-99); Potassium, Blood 3.9 mmol/L (3.5-5.5); Sodium, Blood 143 mmol/L (136-145)
--- NOTE | 2018-03-27 06:20 | NUR ---
SHIFT SUMMARY PT IS A 32 Y/O FEMALE, ADMITTED FOR PNA. SHE IS A&O X 4, AND INDEPENDENT IN THE ROOM. THE PT REPORTED NAUSEA DURING THE NIGHT, AND WAS MEDICATED X 2 WITH PRN PHENERGAN. SHE ALSO STATED THAT SHE WAS UNABLE TO KEEP HER DINNER DOWN, THOUGH SHE WAS NOT WITNESSED VOMITING BY STAFF. THE PT DID REPORT SOME THROAT PAIN, BUT DID NOT ASK FOR PAIN MEDS DURING THE NIGHT. SHE WAS MEDICATED X 1 WITH BENEDRYL FOR A SKIN REACTION TO ADHESIVE SECURING HER MEDIPORT ACCESS. BP WAS LOW DURING EVENING VITALS AT 93/54. ALL OTHER VITALS STABLE. PT WAS ON CONTINUOUS FLUIDS, NS AND CLINIMIX. NO OTHER ACUTE CHANGES IN PT CONDITION NOTED. WILL CONTINUE TO MONITOR AND TREAT.
[2018-03-27] MEDS ORDERED: ACET325 PO (15:52)
[2018-03-27] MEDS ORDERED: Acephen650 MG PR (15:52)
[2018-03-27] MEDS ORDERED: ASCO500 PO (15:53)
[2018-03-27] MEDS ORDERED: ALBU90OI INH (15:53)
[2018-03-27] MEDS ORDERED: CEFP200 PO (15:53)
[2018-03-27] MEDS ORDERED: ROBITUSSIN COU237 ML PO (15:55)
[2018-03-27] MEDS ORDERED: Allergy Medicat25 MG PO (15:56)
[2018-03-27] MEDS ORDERED: Benadryl Itch28.3 G1 TOP (15:57)
[2018-03-27] MEDS ORDERED: Mucinex1200 MG PO (15:58)
[2018-03-27] MEDS ORDERED: Ferrous Sulfat325 M2 PO (15:58)
[2018-03-27] MEDS ORDERED: Advil Migraine200 MG PO (15:59)
[2018-03-27] MEDS ORDERED: METO5A PO (16:00)
[2018-03-27] MEDS ORDERED: PROC5 PO (16:00)
[2018-03-27] MEDS ORDERED: AZIT500 PO (16:01)
[2018-03-27] MEDS ORDERED: ONDA4ODT PO (16:01)
--- NOTE | 2018-03-27 16:45 | NUR ---
SUMMARY/DISCHARGE PT DISCHARGED TO HOME WITH HER SPOUSE, PT VERBALIZED UNDERSTANDING OF DISCHARGE INSTRUCTIONS REGARDING MEDICATIONS AND FOLLOW UP, PT'S MEDIPORT PACKED AND DEACCESSED, PT REPORTS SHE [facility]LL[facility] MEDIP[facility] AND CHEMO, PT ABLE TO BE TAKEN OUT SAFELY VIA WHEELCHAIR
== END 2018-03-27 16:36 | disposition home or self-care (01) | DRG 195 ==
LOC: ER 15:02 → MEDS 19:15 → ENPENDDIS 03-27 15:35 → MEDS 03-27 16:36
PROVIDERS: Physician Assistant; ADMIT Family Medicine
DX: J18.9 Pneumonia, unspecified organism (principal); B34.9 Viral infection, unspecified; Z85.3 Personal history of malignant neoplasm of breast; Z79.810 Long term (current) use of selective estrogen receptor modulators (SERMs)
CPT/HCPCS: 71046; 80048; 80053; 81025; 83605; 83690; 84145; 85025; 85027; 87040; 87081; 87430; 87486; 87581; 87633; 87798; 87804; 94760; 96361; 96374; 96375; 99283-25; 99284-25; J0456; J0696; J0780; J1170; J1200; J1642; J1885; J2405; J2550; J2765; J7030; J7050; J7120

== ENCOUNTER 2018-03-28 12:26 | Observation (INO) | payer OTHER ==
[~2018-03-28] VITALS: Ht 162.6 cm; Wt 64.7 kg
[~2018-03-28 12:26] MED LIST changes: +**INCOMPLETE MED REC; +ALBU90OI INH; +ASCO500 PO; +AZIT500 PO; +Acephen650 MG PR; +Advil Migraine200 MG PO; +Allergy Medicat25 MG PO; +Benadryl Itch28.3 G1 TOP; +CEFP200 PO; +Ferrous Sulfat325 M2 PO; +METO5A PO; +Mucinex1200 MG PO; +PROC5 PO; +ROBITUSSIN COU237 ML PO
[2018-03-28 13:22] LABS: BASOPHILS ABSOLUTE AUTO 0.03 K/mm3 (0.00-0.23); BASOPHILS PERCENT AUTO 1 % (0-2); EOSINOPHILS ABSOLUTE AUTO 0.15 K/mm3 (0.00-0.68); EOSINOPHILS PERCENT AUTO 4 % (0-6); Hematocrit 40.3 % (33.0-51.0); Hemoglobin 13.5 g/dL (11.5-16.0); IMMATURE GRAN ABSOLUTE AUTO 0.02 K/mm3 (0.00-0.10); IMMATURE GRAN PERCENT AUTO 1 % (0-1); LYMPHOCYTES ABSOLUTE AUTO 1.24 K/mm3 (0.84-5.20); LYMPHOCYTES PERCENT AUTO 34 % (21-46); MONOCYTES ABSOLUTE AUTO 0.42 K/mm3 (0.16-1.47); MONOCYTES PERCENT AUTO 12 % (4-13); Mean Corpuscular HGB 29.4 pg (26.0-34.0); Mean Corpuscular HGB Conc 33.5 g/dL (31.5-36.5); Mean Corpuscular Volume 88 fL (80-100); Mean Platelet Volume 9.8 fL (9.1-12.4); NEUTROPHILS ABSOLUTE AUTO 1.78 K/mm3 (1.96-9.15); NEUTROPHILS PERCENT AUTO 49 % (41-73); Platelet Count 244 K/mm3 (150-400); RDW Coefficient Variation 11.2 % (11.7-14.2); RDW Standard Deviation 35.8 fL (35.1-46.3); Red Blood Cell Count 4.59 M/mm3 (3.80-5.20); White Blood Cell Count 3.64 K/mm3 (4.00-11.30)
[2018-03-28 13:40] LABS: Alanine Aminotransfer (ALT/SGP 59 U/L (12-78); Albumin/Globulin Ratio 1.2 (0.8-1.8); Alk Phos 54 U/L (50-136); Anion Gap 8 mmol/L (6-16); Aspartate Aminotrans (AST/SGOT 41 U/L (12-37); Bilirubin, Total 0.2 mg/dL (0.1-1.0); Blood Urea Nitrogen 16 mg/dL (8-24); CO2, Blood 25 mmol/L (21-32); Calcium, Blood 8.6 mg/dL (8.5-10.1); Chloride, Blood 109 mmol/L (98-108); Creatinine, Blood 0.73 mg/dL (0.40-1.00); Globulin, Blood 3.3 g/dL (2.2-4.0); Glomerular Filtration Rate >60 (60-); Glucose, Blood 110 mg/dL (70-99); Potassium, Blood 3.8 mmol/L (3.5-5.5); Sodium, Blood 142 mmol/L (136-145); Total Protein, Blood 7.3 g/dL (6.4-8.2)
--- NOTE | 2018-03-28 18:31 | NUR ---
SHIFT SUMMARY ED ADMIT AT DINNERTIME. PATIENT SETTLED INTO ROOM. GIVEN IV DILAUDED FOR PAIN. PATIENT DENIES SHORTNESS OF BREATH AND HAS NOT VOMITED SINCE COMING TO FLOOR. RN CALLED KIM MADRID TO ASK FOR IV BENADRYL PER PATIETN REQUEST FOR ITCING RELATED TO ADHESIVE AT [facility] SITE. RN INFORMED THAT PATIENT HAD ALREADY BEEN TOLD THAT SHE WOULD NOT BE GIVEN IV BENDRYL AND WOULD RECIVE LIMITED IV NACOTICS. ORAL BENDRYL ORDERS GIVEN. CALL LIGHT IN REACH, WILL CONTINUE TO MONITOR.
[2018-03-28 22:24] LABS: Source, Urine Clean Catch
[2018-03-28 22:26] LABS: Bilirubin, Urine Neg (Neg); Blood, Urine Neg (Neg); Glucose Qualitative, Urine Neg (Neg); Ketones, Urine Neg (Neg); Leukocyte Esterase, Urine Neg (Neg); Nitrite, Urine Neg (Neg); Protein, Urine Neg (Neg); Urobilinogen, Urine NORM (Normal); pH, Urine 6.5 (5.0-8.0)
[2018-03-28 22:31] LABS: Appearance, Urine Clear (Clear); Color, Urine Yellow (P-Yellow)
[2018-03-28 22:44] LABS: U Amphetamine Screen Not Detected; U Barbituate Screen Not Detected; U Benzodiazapine Screen Not Detected; U Buprenorphine Screen Not Detected; U Cannabinoids Screen Not Detected; U Cocaine Screen Not Detected; U Methadone Screen Not Detected; U Methamphetamine Screen Not Detected; U Opiates Screen DETECTED; U Oxycodone Screen Not Detected; U Phencyclidine Screen Not Detected; U Propoxyphene Screen Not Detected
--- NOTE | 2018-03-29 03:58 | NUR ---
SHIFT SUMMARY PT HAS REQUIRED FREQUENT PRN'S FOR NAUSEA THIS SHIFT. MEDICATION PROVIDES RELIEF OF NAUSEA BUT IT IS ONLY TEMPORARY BEFORE IT RETURNS AGAIN. OCCASIONAL DRY HEAVES. PT HAS NOT REQUESTED ANYTHING ADDITIONAL FOR PAIN SINCE RECEIVING THE LAST DOSE OF IV DILAUDID EARLIER THIS SHIFT. PT VERY HESITANT TO EAT OR DRINK ANYTHING IN FEAR THAT SHE MIGHT START VOMITTING. PT WAS ABLE TO TAKE PO BENADRYL WITHOUT VOMITTING. PT UP AND INDEPENDENT IN THE ROOM. A/OX4, PLESANT. NO ACUTE CHANGES. WILL CONTINUE TO MONITOR AND REPORT TO ONCOMING RN.
[2018-03-29 07:08] LABS: Alanine Aminotransfer (ALT/SGP 43 U/L (12-78); Albumin, Blood 3.4 g/dL (3.4-5.0); Albumin/Globulin Ratio 1.3 (0.8-1.8); Alk Phos 41 U/L (50-136); Anion Gap 8 mmol/L (6-16); Aspartate Aminotrans (AST/SGOT 25 U/L (12-37); Bilirubin, Total 0.3 mg/dL (0.1-1.0); Blood Urea Nitrogen 10 mg/dL (8-24); Bun/Creatinine Ratio 15.5 (12.0-20.0); CO2, Blood 24 mmol/L (21-32); Calcium, Blood 7.7 mg/dL (8.5-10.1); Chloride, Blood 110 mmol/L (98-108); Creatinine, Blood 0.65 mg/dL (0.40-1.00); Globulin, Blood 2.7 g/dL (2.2-4.0); Glomerular Filtration Rate >60 (60-); Glucose, Blood 77 mg/dL (70-99); Potassium, Blood 3.7 mmol/L (3.5-5.5); Sodium, Blood 142 mmol/L (136-145); Total Protein, Blood 6.1 g/dL (6.4-8.2)
--- NOTE | 2018-03-29 08:40 | NUR ---
PT C/O OF NAUSEA, MEDICATED WITH IV ZOFRAN, REFUSED PO LIQUID REGLAN DUE TO THE REPORTED NAUSEA
--- NOTE | 2018-03-29 08:59 | NUR ---
PAIN CONTROL PT REPORTS INCREASED PAIN, TRAMADOL AND TYLENOL AVAILABLE. PT DECLINED THE AVAILABLE OPTIONS. DOES NOT WANT ANY PO MEDICATIONS AT THIS TIME.
--- NOTE | 2018-03-29 13:07 | NUR ---
DISCHARGE DISCHARGE INSTRUCTIONS, MEDICATION LIST AND FOLLOW UP APPOINTMENT REVIEWED WITH PT. QUESTIONS/CONCERNS ANSWERED. PT VERBALLY INDICATED UNDERSTANDING OF ALL INSTRUCTIONS RECEIVED. IMPLANTED PORT FLUSHED WITH HEPARIN PER PROTOCOL AND DEACCESSED WITHOUT DIFFICULTY.
== END 2018-03-29 13:19 | disposition home or self-care (01) ==
LOC: ER 12:26 → MEDS 14:59
PROVIDERS: Nurse Practitioner Acute Care; Physician Assistant; ADMIT Internal Medicine
DX: R11.2 Nausea with vomiting, unspecified (principal); J18.9 Pneumonia, unspecified organism; D50.9 Iron deficiency anemia, unspecified; R52 Pain, unspecified; R01.0 Benign and innocent cardiac murmurs; F32.9 Major depressive disorder, single episode, unspecified; F41.9 Anxiety disorder, unspecified; Z91.048 Other nonmedicinal substance allergy status; Z79.899 Other long term (current) drug therapy; Z90.10 Acquired absence of unspecified breast and nipple; Z85.3 Personal history of malignant neoplasm of breast; Z98.82 Breast implant status; Z90.49 Acquired absence of other specified parts of digestive tract; Z98.890 Other specified postprocedural states
CPT/HCPCS: 71046; 80053; 81003; 83735; 84145; 85025; 96361; 96365; 96367; 96372; 96375; 96376; 99285-25; C9113; G0378; J0456; J0696; J0780; J1100; J1170; J1200; J1630; J1642; J1650; J2405; J7030; J7050; Q0163

== ENCOUNTER 2018-06-28 09:25 | Day surgery (SDC) | payer OTHER ==
[2018-06-28] MEDS ORDERED: VITAMIN D-32000 UNIT PO (09:58)
[2018-06-28 10:25] LABS: BASOPHILS ABSOLUTE AUTO 0.04 K/mm3 (0.00-0.23); BASOPHILS PERCENT AUTO 1 % (0-2); EOSINOPHILS ABSOLUTE AUTO 0.07 K/mm3 (0.00-0.68); EOSINOPHILS PERCENT AUTO 1 % (0-6); Hematocrit 39.4 % (33.0-51.0); IMMATURE GRAN ABSOLUTE AUTO 0.01 K/mm3 (0.00-0.10); IMMATURE GRAN PERCENT AUTO 0 % (0-1); LYMPHOCYTES ABSOLUTE AUTO 0.96 K/mm3 (0.84-5.20); LYMPHOCYTES PERCENT AUTO 19 % (21-46); MONOCYTES PERCENT AUTO 8 % (4-13); Mean Corpuscular HGB 28.6 pg (26.0-34.0); Mean Corpuscular Volume 87 fL (80-100); Mean Platelet Volume 9.6 fL (9.1-12.4); NEUTROPHILS ABSOLUTE AUTO 3.58 K/mm3 (1.96-9.15); NEUTROPHILS PERCENT AUTO 71 % (41-73); Platelet Count 239 K/mm3 (150-400); RDW Coefficient Variation 12.1 % (11.7-14.2); RDW Standard Deviation 38.5 fL (35.1-46.3); Red Blood Cell Count 4.55 M/mm3 (3.80-5.20); White Blood Cell Count 5.06 K/mm3 (4.00-11.30)
[2018-06-28 10:48] LABS: Percent Saturation 24.8 % (15.0-50.0)
== END 2018-06-28 09:59 | disposition home or self-care (01) ==
LOC: ATC 09:25
PROVIDERS: Internal Medicine Hematology & Oncology
DX: C50.811 Malignant neoplasm of overlapping sites of right female breast (principal); Z15.01 Genetic susceptibility to malignant neoplasm of breast; Z17.0 Estrogen receptor positive status [ER+]; E55.9 Vitamin D deficiency, unspecified; F41.9 Anxiety disorder, unspecified; Z88.8 Allergy status to other drugs, medicaments and biological substances
CPT/HCPCS: 82728; 83540; 83550; 85025; J1642

== ENCOUNTER 2018-07-30 19:25 | Emergency (ER) | payer OTHER ==
[~2018-07-30] VITALS: Ht 162.6 cm; Wt 65.3 kg
[~2018-07-30 19:25] MED LIST changes: +VITAMIN D-32000 UNIT PO
[2018-07-30] MEDS ORDERED: Zoladex3.6 MG SC (19:47)
[2018-07-31 00:51] LABS: BASOPHILS ABSOLUTE AUTO 0.02 K/mm3 (0.00-0.23); BASOPHILS PERCENT AUTO 0 % (0-2); EOSINOPHILS ABSOLUTE AUTO 0.06 K/mm3 (0.00-0.68); EOSINOPHILS PERCENT AUTO 1 % (0-6); Hematocrit 36.1 % (33.0-51.0); Hemoglobin 11.8 g/dL (11.5-16.0); IMMATURE GRAN ABSOLUTE AUTO 0.01 K/mm3 (0.00-0.10); IMMATURE GRAN PERCENT AUTO 0 % (0-1); LYMPHOCYTES ABSOLUTE AUTO 1.26 K/mm3 (0.84-5.20); LYMPHOCYTES PERCENT AUTO 22 % (21-46); MONOCYTES PERCENT AUTO 10 % (4-13); Mean Corpuscular HGB 29.5 pg (26.0-34.0); Mean Corpuscular HGB Conc 32.7 g/dL (31.5-36.5); Mean Corpuscular Volume 90 fL (80-100); NEUTROPHILS ABSOLUTE AUTO 3.83 K/mm3 (1.96-9.15); NEUTROPHILS PERCENT AUTO 66 % (41-73); Platelet Count 173 K/mm3 (150-400); RDW Coefficient Variation 11.7 % (11.7-14.2); RDW Standard Deviation 38.9 fL (35.1-46.3); White Blood Cell Count 5.78 K/mm3 (4.00-11.30)
[2018-07-31 01:08] LABS: Alanine Aminotransfer (ALT/SGP 34 U/L (12-78); Albumin, Blood 3.8 g/dL (3.4-5.0); Albumin/Globulin Ratio 1.3 (0.8-1.8); Alk Phos 74 U/L (50-136); Anion Gap 4 mmol/L (6-16); Aspartate Aminotrans (AST/SGOT 23 U/L (12-37); Bilirubin, Total 0.3 mg/dL (0.1-1.0); Blood Urea Nitrogen 14 mg/dL (8-24); Bun/Creatinine Ratio 20.1 (12.0-20.0); CO2, Blood 29 mmol/L (21-32); Calcium, Blood 8.1 mg/dL (8.5-10.1); Chloride, Blood 110 mmol/L (98-108); Globulin, Blood 2.9 g/dL (2.2-4.0); Glomerular Filtration Rate >60 (60-); Glucose, Blood 95 mg/dL (70-99); Potassium, Blood 3.7 mmol/L (3.5-5.5); Sodium, Blood 143 mmol/L (136-145); Total Protein, Blood 6.7 g/dL (6.4-8.2)
[2018-07-31 01:59] LABS: Appearance, CSF Clear (Clear); Color, CSF No Color (No Color)
[2018-07-31 02:04] LABS: Glucose, CSF 58 mg/dL (40-70)
[2018-07-31 02:07] LABS: Appearance, CSF Clear (Clear); Color, CSF No Color (No Color)
[2018-07-31 02:10] LABS: Cryptococcus Neoformans/Gattii Not Detected (NOT DETECT); Enterovirus Not Detected (NOT DETECT); Escherichia Coli K1 Not Detected (NOT DETECT); Haemophilus Influenza Not Detected (NOT DETECT); Herpes Simplex Virus 1 Not Detected (NOT DETECT); Herpes Simplex Virus 2 Not Detected (NOT DETECT); Human Herpesvirus 6 Not Detected (NOT DETECT); Human Parechovirus Not Detected (NOT DETECT); Listeria Monocytogenes Not Detected (NOT DETECT); Neisseria Meningitidis Not Detected (NOT DETECT); Streptococcus Agalactiae Not Detected (NOT DETECT); Streptococcus Pneumoniae Not Detected (NOT DETECT); Varicella Zoster Virus Not Detected (NOT DETECT)
[2018-07-31] MEDS ORDERED: KETO10 PO (02:18)
[2018-07-31] MEDS ORDERED: CEPACOL SORE T1 EACH MM (02:18)
[2018-07-31] MEDS ORDERED: Zofran8 MG PO (18:39)
[2018-07-31] MEDS ORDERED: PROM25 PR (18:39)
[2018-07-31] MEDS ORDERED: Flonase 0.05% N16 GM (18:39)
[2018-09-23] MEDS ORDERED: Zoladex10.8 MG IV (11:00)
[2018-11-13] MEDS ORDERED: DIPH50 PO (16:30)
[2018-11-13] MEDS ORDERED: Benadryl Itch28.3 G1 TOP (16:30)
[2018-11-13] MEDS ORDERED: Rocephin 1g1 G/50 ML IV (16:37)
== END 2018-07-31 03:08 | disposition home or self-care (01) ==
LOC: ER 19:25
PROVIDERS: Physician Assistant
DX: B34.9 Viral infection, unspecified (principal); M79.10 Myalgia, unspecified site; M43.6 Torticollis; Z85.3 Personal history of malignant neoplasm of breast; F32.9 Major depressive disorder, single episode, unspecified; Z79.899 Other long term (current) drug therapy
CPT/HCPCS: 62270; 80053; 82945; 84157; 85025; 86308; 87070; 87081; 87205; 87483; 89051; 96361-59; 96374-59; 96375-59; 96376-59; 99283-25; J1170; J1200; J1642; J1885; J2405; J7030

== ENCOUNTER 2018-07-31 12:51 | Emergency (ER) | payer OTHER ==
[~2018-07-31] VITALS: Ht 162.6 cm; Wt 65.3 kg
[~2018-07-31 12:51] MED LIST changes: +CEPACOL SORE T1 EACH MM; +KETO10 PO; +Zoladex3.6 MG SC
[2018-07-31] MEDS ORDERED: PROM25 PR (18:39)
[2018-07-31] MEDS ORDERED: Flonase 0.05% N16 GM (18:39)
[2018-07-31] MEDS ORDERED: Zofran8 MG PO (18:39)
[2018-09-23] MEDS ORDERED: Zoladex10.8 MG IV (11:00)
[2018-11-13] MEDS ORDERED: DIPH50 PO (16:30)
[2018-11-13] MEDS ORDERED: Benadryl Itch28.3 G1 TOP (16:30)
[2018-11-13] MEDS ORDERED: Rocephin 1g1 G/50 ML IV (16:37)
== END 2018-07-31 19:10 | disposition home or self-care (01) ==
LOC: ER 12:51
DX: J32.9 Chronic sinusitis, unspecified (principal); M54.5 Low back pain; Z91.048 Other nonmedicinal substance allergy status; Z79.899 Other long term (current) drug therapy; F32.9 Major depressive disorder, single episode, unspecified; Z85.3 Personal history of malignant neoplasm of breast
CPT/HCPCS: 70470; 96361; 96374-59; 96375-59; 96376-59; 99284-25; J0706; J1170; J1200; J1642; J2405; J2550; J7030; J7120; Q9967

== ENCOUNTER 2018-08-01 04:06 | Emergency (ER) | payer OTHER ==
[~2018-08-01] VITALS: Ht 162.6 cm; Wt 65.3 kg
[~2018-08-01 04:06] MED LIST changes: +Flonase 0.05% N16 GM; +PROM25 PR; +Zofran8 MG PO
[2018-09-23] MEDS ORDERED: Zoladex10.8 MG IV (11:00)
[2018-11-13] MEDS ORDERED: DIPH50 PO (16:30)
[2018-11-13] MEDS ORDERED: Benadryl Itch28.3 G1 TOP (16:30)
[2018-11-13] MEDS ORDERED: Rocephin 1g1 G/50 ML IV (16:37)
== END 2018-08-01 11:46 | disposition home or self-care (01) ==
LOC: ER 04:06
DX: G97.1 Other reaction to spinal and lumbar puncture (principal); F32.9 Major depressive disorder, single episode, unspecified; Z91.048 Other nonmedicinal substance allergy status; Z79.899 Other long term (current) drug therapy; Y84.4 Aspiration of fluid as the cause of abnormal reaction of the patient, or of later complication, without mention of misadventure at the time of the procedure
CPT/HCPCS: 36415; 96361; 96374; 96375; 96376; 99283-25; J0706; J1200; J1642; J1885; J2550; J2765; J3010; J7030; Q0163

== ENCOUNTER 2018-08-02 23:44 | Emergency (ER) | payer OTHER ==
[~2018-08-02] VITALS: Ht 162.6 cm; Wt 65.3 kg
[2018-08-03 03:52] LABS: Hemoglobin 11.5 g/dL (11.5-16.0)
[2018-08-03 04:17] LABS: Alanine Aminotransfer (ALT/SGP 27 U/L (12-78); Albumin, Blood 3.7 g/dL (3.4-5.0); Albumin/Globulin Ratio 1.3 (0.8-1.8); Alk Phos 52 U/L (50-136); Anion Gap 4 mmol/L (6-16); Aspartate Aminotrans (AST/SGOT 21 U/L (12-37); Bilirubin, Total 0.3 mg/dL (0.1-1.0); Blood Urea Nitrogen 10 mg/dL (8-24); Bun/Creatinine Ratio 15.7 (12.0-20.0); CO2, Blood 30 mmol/L (21-32); Calcium, Blood 8.4 mg/dL (8.5-10.1); Chloride, Blood 108 mmol/L (98-108); Creatinine, Blood 0.64 mg/dL (0.40-1.00); Globulin, Blood 2.8 g/dL (2.2-4.0); Glomerular Filtration Rate >60 (60-); Glucose, Blood 84 mg/dL (70-99); Potassium, Blood 3.5 mmol/L (3.5-5.5); Sodium, Blood 142 mmol/L (136-145); Total Protein, Blood 6.5 g/dL (6.4-8.2)
[2018-08-03] MEDS ORDERED: Voltaren100 GM TOP (05:03)
[2018-09-23] MEDS ORDERED: Zoladex10.8 MG IV (11:00)
[2018-11-13] MEDS ORDERED: DIPH50 PO (16:30)
[2018-11-13] MEDS ORDERED: Benadryl Itch28.3 G1 TOP (16:30)
[2018-11-13] MEDS ORDERED: Rocephin 1g1 G/50 ML IV (16:37)
== END 2018-08-03 06:53 | disposition home or self-care (01) ==
LOC: ER 23:44
PROVIDERS: Emergency Medicine
DX: M54.5 Low back pain (principal); Z91.048 Other nonmedicinal substance allergy status; Z79.899 Other long term (current) drug therapy; F32.9 Major depressive disorder, single episode, unspecified; Z85.3 Personal history of malignant neoplasm of breast
CPT/HCPCS: 71046; 80053; 83690; 85014; 85018; 96374; 96375; 99283-25; J1170; J1200; J1642; J1885; J2550; J7030

== ENCOUNTER 2018-08-03 03:03 | Day surgery (SDC) | payer OTHER ==
[2018-08-03] MEDS ORDERED: Voltaren100 GM TOP (05:03)
[2018-08-03 10:38] LABS: BASOPHILS ABSOLUTE AUTO 0.04 K/mm3 (0.00-0.23); BASOPHILS PERCENT AUTO 1 % (0-2); EOSINOPHILS ABSOLUTE AUTO 0.14 K/mm3 (0.00-0.68); EOSINOPHILS PERCENT AUTO 4 % (0-6); Hematocrit 37.4 % (33.0-51.0); Hemoglobin 12.1 g/dL (11.5-16.0); IMMATURE GRAN ABSOLUTE AUTO 0.01 K/mm3 (0.00-0.10); IMMATURE GRAN PERCENT AUTO 0 % (0-1); LYMPHOCYTES ABSOLUTE AUTO 1.38 K/mm3 (0.84-5.20); LYMPHOCYTES PERCENT AUTO 35 % (21-46); MONOCYTES ABSOLUTE AUTO 0.41 K/mm3 (0.16-1.47); MONOCYTES PERCENT AUTO 11 % (4-13); Mean Corpuscular HGB 29.2 pg (26.0-34.0); Mean Corpuscular HGB Conc 32.4 g/dL (31.5-36.5); Mean Corpuscular Volume 90 fL (80-100); Mean Platelet Volume 9.5 fL (9.1-12.4); NEUTROPHILS ABSOLUTE AUTO 1.93 K/mm3 (1.96-9.15); NEUTROPHILS PERCENT AUTO 49 % (41-73); Platelet Count 189 K/mm3 (150-400); RDW Coefficient Variation 11.5 % (11.7-14.2); RDW Standard Deviation 37.9 fL (35.1-46.3); Red Blood Cell Count 4.15 M/mm3 (3.80-5.20); White Blood Cell Count 3.91 K/mm3 (4.00-11.30)
[2018-08-03 11:01] LABS: Percent Saturation 24.6 % (15.0-50.0)
[2018-08-03 12:08] LABS: Alanine Aminotransfer (ALT/SGP 32 U/L (12-78); Albumin, Blood 3.9 g/dL (3.4-5.0); Albumin/Globulin Ratio 1.3 (0.8-1.8); Alk Phos 51 U/L (50-136); Anion Gap 6 mmol/L (6-16); Aspartate Aminotrans (AST/SGOT 27 U/L (12-37); Bilirubin, Total 0.5 mg/dL (0.1-1.0); Blood Urea Nitrogen 8 mg/dL (8-24); CO2, Blood 28 mmol/L (21-32); Calcium, Blood 8.4 mg/dL (8.5-10.1); Chloride, Blood 109 mmol/L (98-108); Creatinine, Blood 0.66 mg/dL (0.40-1.00); Globulin, Blood 2.9 g/dL (2.2-4.0); Glomerular Filtration Rate >60 (60-); Glucose, Blood 84 mg/dL (70-99); Potassium, Blood 3.8 mmol/L (3.5-5.5); Sodium, Blood 143 mmol/L (136-145); Total Protein, Blood 6.8 g/dL (6.4-8.2)
[2018-09-23] MEDS ORDERED: Zoladex10.8 MG IV (11:00)
[2018-11-13] MEDS ORDERED: DIPH50 PO (16:30)
[2018-11-13] MEDS ORDERED: Benadryl Itch28.3 G1 TOP (16:30)
[2018-11-13] MEDS ORDERED: Rocephin 1g1 G/50 ML IV (16:37)
== END 2018-08-03 10:25 | disposition home or self-care (01) ==
LOC: ATC 03:03
PROVIDERS: Internal Medicine Hematology & Oncology
DX: C50.811 Malignant neoplasm of overlapping sites of right female breast (principal); F41.9 Anxiety disorder, unspecified; E55.9 Vitamin D deficiency, unspecified; Z15.01 Genetic susceptibility to malignant neoplasm of breast; Z17.0 Estrogen receptor positive status [ER+]; Z88.8 Allergy status to other drugs, medicaments and biological substances
CPT/HCPCS: 80053; 82306; 82728; 83540; 83550; 84443; 85025; 96523; J1642

== ENCOUNTER 2018-08-05 14:16 | Emergency (ER) | payer OTHER ==
[~2018-08-05] VITALS: Ht 162.6 cm; Wt 63.5 kg
[~2018-08-05 14:16] MED LIST changes: +Voltaren100 GM TOP
[2018-08-05 16:54] LABS: BASOPHILS ABSOLUTE AUTO 0.04 K/mm3 (0.00-0.23); BASOPHILS PERCENT AUTO 1 % (0-2); EOSINOPHILS ABSOLUTE AUTO 0.08 K/mm3 (0.00-0.68); EOSINOPHILS PERCENT AUTO 2 % (0-6); Hematocrit 41.4 % (33.0-51.0); Hemoglobin 13.7 g/dL (11.5-16.0); IMMATURE GRAN ABSOLUTE AUTO 0.01 K/mm3 (0.00-0.10); IMMATURE GRAN PERCENT AUTO 0 % (0-1); LYMPHOCYTES ABSOLUTE AUTO 1.51 K/mm3 (0.84-5.20); LYMPHOCYTES PERCENT AUTO 28 % (21-46); MONOCYTES ABSOLUTE AUTO 0.51 K/mm3 (0.16-1.47); MONOCYTES PERCENT AUTO 10 % (4-13); Mean Corpuscular HGB 29.1 pg (26.0-34.0); Mean Corpuscular HGB Conc 33.1 g/dL (31.5-36.5); Mean Corpuscular Volume 88 fL (80-100); Mean Platelet Volume 9.5 fL (9.1-12.4); NEUTROPHILS ABSOLUTE AUTO 3.23 K/mm3 (1.96-9.15); NEUTROPHILS PERCENT AUTO 60 % (41-73); Platelet Count 249 K/mm3 (150-400); RDW Coefficient Variation 11.6 % (11.7-14.2); RDW Standard Deviation 37.3 fL (35.1-46.3); Red Blood Cell Count 4.71 M/mm3 (3.80-5.20); White Blood Cell Count 5.38 K/mm3 (4.00-11.30)
[2018-08-05 17:13] LABS: Alanine Aminotransfer (ALT/SGP 35 U/L (12-78); Albumin, Blood 4.5 g/dL (3.4-5.0); Albumin/Globulin Ratio 1.3 (0.8-1.8); Alk Phos 62 U/L (50-136); Anion Gap 7 mmol/L (6-16); Aspartate Aminotrans (AST/SGOT 25 U/L (12-37); Bilirubin, Total 0.5 mg/dL (0.1-1.0); Blood Urea Nitrogen 15 mg/dL (8-24); Bun/Creatinine Ratio 21.3 (12.0-20.0); CO2, Blood 27 mmol/L (21-32); Calcium, Blood 9.2 mg/dL (8.5-10.1); Chloride, Blood 106 mmol/L (98-108); Creatinine, Blood 0.71 mg/dL (0.40-1.00); Globulin, Blood 3.5 g/dL (2.2-4.0); Glomerular Filtration Rate >60 (60-); Glucose, Blood 90 mg/dL (70-99); Potassium, Blood 3.7 mmol/L (3.5-5.5); Sodium, Blood 140 mmol/L (136-145)
[2018-08-05] MEDS ORDERED: ONDA4ODT MM (18:00)
[2018-08-05] MEDS ORDERED: CEFP200 PO (18:00)
[2018-08-06] MEDS ORDERED: COMPAZINE10 MG PO (20:04)
[2018-09-23] MEDS ORDERED: Zoladex10.8 MG IV (11:00)
[2018-11-13] MEDS ORDERED: Benadryl Itch28.3 G1 TOP (16:30)
[2018-11-13] MEDS ORDERED: DIPH50 PO (16:30)
[2018-11-13] MEDS ORDERED: Rocephin 1g1 G/50 ML IV (16:37)
== END 2018-08-05 18:32 | disposition home or self-care (01) ==
LOC: ER 14:16
PROVIDERS: Emergency Medicine
DX: J32.0 Chronic maxillary sinusitis (principal); M54.9 Dorsalgia, unspecified; F32.9 Major depressive disorder, single episode, unspecified; F41.9 Anxiety disorder, unspecified; Z85.3 Personal history of malignant neoplasm of breast
CPT/HCPCS: 71046; 80053; 85025; 96374; 96375; 99283-25; A9270-GY; J1170; J1200; J1642; J2405

== ENCOUNTER 2018-08-06 16:58 | Emergency (ER) | payer OTHER ==
[~2018-08-06] VITALS: Ht 162.6 cm; Wt 63.5 kg
[~2018-08-06 16:58] MED LIST changes: +ONDA4ODT MM
[2018-08-06 19:32] LABS: BASOPHILS ABSOLUTE AUTO 0.04 K/mm3 (0.00-0.23); BASOPHILS PERCENT AUTO 1 % (0-2); EOSINOPHILS ABSOLUTE AUTO 0.11 K/mm3 (0.00-0.68); EOSINOPHILS PERCENT AUTO 3 % (0-6); Hematocrit 37.9 % (33.0-51.0); Hemoglobin 12.7 g/dL (11.5-16.0); IMMATURE GRAN ABSOLUTE AUTO 0.01 K/mm3 (0.00-0.10); IMMATURE GRAN PERCENT AUTO 0 % (0-1); LYMPHOCYTES ABSOLUTE AUTO 1.32 K/mm3 (0.84-5.20); LYMPHOCYTES PERCENT AUTO 30 % (21-46); MONOCYTES PERCENT AUTO 11 % (4-13); Mean Corpuscular HGB 29.5 pg (26.0-34.0); Mean Corpuscular HGB Conc 33.5 g/dL (31.5-36.5); Mean Corpuscular Volume 88 fL (80-100); Mean Platelet Volume 9.5 fL (9.1-12.4); NEUTROPHILS ABSOLUTE AUTO 2.41 K/mm3 (1.96-9.15); NEUTROPHILS PERCENT AUTO 55 % (41-73); Platelet Count 209 K/mm3 (150-400); RDW Coefficient Variation 11.5 % (11.7-14.2); RDW Standard Deviation 37.2 fL (35.1-46.3); Red Blood Cell Count 4.31 M/mm3 (3.80-5.20); White Blood Cell Count 4.39 K/mm3 (4.00-11.30)
[2018-08-06 19:52] LABS: Anion Gap 6 mmol/L (6-16); Blood Urea Nitrogen 18 mg/dL (8-24); Bun/Creatinine Ratio 26.7 (12.0-20.0); CO2, Blood 28 mmol/L (21-32); Calcium, Blood 7.9 mg/dL (8.5-10.1); Chloride, Blood 108 mmol/L (98-108); Creatinine, Blood 0.67 mg/dL (0.40-1.00); Glomerular Filtration Rate >60 (60-); Glucose, Blood 82 mg/dL (70-99); Potassium, Blood 3.6 mmol/L (3.5-5.5); Sodium, Blood 142 mmol/L (136-145)
[2018-08-06] MEDS ORDERED: COMPAZINE10 MG PO (20:04)
[2018-09-23] MEDS ORDERED: Zoladex10.8 MG IV (11:00)
[2018-11-13] MEDS ORDERED: DIPH50 PO (16:30)
[2018-11-13] MEDS ORDERED: Benadryl Itch28.3 G1 TOP (16:30)
[2018-11-13] MEDS ORDERED: Rocephin 1g1 G/50 ML IV (16:37)
== END 2018-08-06 20:42 | disposition home or self-care (01) ==
LOC: ER 16:58
PROVIDERS: Emergency Medicine
DX: J32.0 Chronic maxillary sinusitis (principal); R11.2 Nausea with vomiting, unspecified; F32.9 Major depressive disorder, single episode, unspecified; F41.9 Anxiety disorder, unspecified; Z85.3 Personal history of malignant neoplasm of breast
CPT/HCPCS: 80048; 85025; 96365; 96375; 99284-25; J0696; J1170; J1200; J1630; J1642; J7030

== ENCOUNTER 2018-09-26 14:25 | Day surgery (SDC) | payer OTHER ==
[~2018-09-26 14:25] MED LIST changes: +Zoladex10.8 MG IV
[2018-09-26 15:13] LABS: BASOPHILS ABSOLUTE AUTO 0.04 K/mm3 (0.00-0.23); BASOPHILS PERCENT AUTO 1 % (0-2); EOSINOPHILS ABSOLUTE AUTO 0.04 K/mm3 (0.00-0.68); EOSINOPHILS PERCENT AUTO 1 % (0-6); Hematocrit 38.7 % (33.0-51.0); Hemoglobin 12.7 g/dL (11.5-16.0); IMMATURE GRAN ABSOLUTE AUTO 0.02 K/mm3 (0.00-0.10); IMMATURE GRAN PERCENT AUTO 0 % (0-1); LYMPHOCYTES ABSOLUTE AUTO 1.49 K/mm3 (0.84-5.20); LYMPHOCYTES PERCENT AUTO 23 % (21-46); MONOCYTES ABSOLUTE AUTO 0.59 K/mm3 (0.16-1.47); MONOCYTES PERCENT AUTO 9 % (4-13); Mean Corpuscular HGB Conc 32.8 g/dL (31.5-36.5); Mean Corpuscular Volume 88 fL (80-100); Mean Platelet Volume 9.7 fL (9.1-12.4); NEUTROPHILS ABSOLUTE AUTO 4.28 K/mm3 (1.96-9.15); NEUTROPHILS PERCENT AUTO 66 % (41-73); Platelet Count 247 K/mm3 (150-400); RDW Coefficient Variation 12.1 % (11.7-14.2); RDW Standard Deviation 39.1 fL (35.1-46.3); Red Blood Cell Count 4.38 M/mm3 (3.80-5.20); White Blood Cell Count 6.46 K/mm3 (4.00-11.30)
[2018-11-13] MEDS ORDERED: DIPH50 PO (16:30)
[2018-11-13] MEDS ORDERED: Benadryl Itch28.3 G1 TOP (16:30)
[2018-11-13] MEDS ORDERED: Rocephin 1g1 G/50 ML IV (16:37)
== END 2018-09-26 14:33 | disposition home or self-care (01) ==
LOC: ATC 14:25
PROVIDERS: Obstetrics & Gynecology
DX: Z01.812 Encounter for preprocedural laboratory examination (principal); Z85.3 Personal history of malignant neoplasm of breast
CPT/HCPCS: 36591; 84703; 85025; J1642

== ENCOUNTER 2018-09-27 08:50 | Day surgery (SDC) | payer OTHER ==
[~2018-09-27] VITALS: Ht 162.6 cm; Wt 64.7 kg
--- NOTE | 2018-09-27 10:02 | NUR ---
PT ADMITTED TO [facility]. AGREES WITH PLANNED SURGERY. LUNG SOUNDS CLEAR. PT DID OWN SHAVE PREP A COUPLE DAYS AGO, SMALL RED BUMPS NOTED. I DID SMALL AMOUNT OF CLIP PREP TO LOWER PART OF PUBIC AREA.
--- NOTE | 2018-09-27 12:42 | NUR ---
09/27/18 1242 Robert Guan HANNON CATH PLACED PER Dolly FANG RN
--- NOTE | 2018-09-27 18:36 | NUR ---
POST OP: REPORT RECIEVED FROM LAP HAND TOOLNICHOLE KASPER. PT TO UNIT AT ABOUT 1650, UPON ASSESSMENT PT IS DROWSY BUT ORIENTED, AWAKENS TO VOICE. VSS. SURGICAL SITES WNL. PT ABLE TO TURN AND DEEP BREATHE. RATES PAIN 6/10, WILL MED. K PAD ACROSS ABD. DENIES NAUSEA. PT ABLE TO AMBULATE TO BATHROOM AT ABOUT 1800, WILL CTM AND REPORT TO NOC NICHOLE.
[2018-09-27 20:59] LABS: Hematocrit 34.3 % (33.0-51.0); Hemoglobin 11.4 g/dL (11.5-16.0)
--- NOTE | 2018-09-28 02:19 | NUR ---
PT C/O PAIN MEDS INEFFECTIVE WITH DILAUDID 1 MG IV TONIGHT AND REQUEST OF BENADRYL MORE FREQUENTLY THAN Q 6HR.I CALLED DR DOMINICK KINNEY COVERING FOR DR MARTINEZ AND RECEIVED ORDERS.PT WAS GIVEN DILAUDID 2 MG THEN BENADRYL WITH PT FEELING SLIGHT "WOOZY" AFTER RECEIVING THEM.I STEPPED OUT TO [place] TO ASK LICENSED MASTER SOCIAL WORKER TO ANSWER ANOTHER PT LIGHT SO I COULD STAY WITH PT AND FOUND PT TO BE LOOKING AT HER WATCH FOR HEART RATE. WATCH READ RATE AT 140 AT THAT TIME. I TOOK FULL VS WITH NIBP AND FIRST HEART RATE READ 120'S. ENC PT RELAXATION AND GAVE COOL WASHCLOTH FOR FOREHEAD AND CONT TO MONITOR. PT REPORTING FEELING BETTER AND HEART RATE 70'S TO 80'S.PT REPORTS PAIN "BETTER" VERB FEELING BETTER IN GENERAL. STATES WHEN SHE GOT "WOOZY, SHE SCARED HERSELF AND HEART RATE WENT UP.
[2018-09-28 05:31] LABS: BASOPHILS ABSOLUTE AUTO 0.04 K/mm3 (0.00-0.23); BASOPHILS PERCENT AUTO 0 % (0-2); EOSINOPHILS ABSOLUTE AUTO 0.03 K/mm3 (0.00-0.68); EOSINOPHILS PERCENT AUTO 0 % (0-6); Hematocrit 29.5 % (33.0-51.0); Hemoglobin 9.9 g/dL (11.5-16.0); IMMATURE GRAN ABSOLUTE AUTO 0.05 K/mm3 (0.00-0.10); IMMATURE GRAN PERCENT AUTO 0 % (0-1); LYMPHOCYTES ABSOLUTE AUTO 1.34 K/mm3 (0.84-5.20); LYMPHOCYTES PERCENT AUTO 11 % (21-46); MONOCYTES ABSOLUTE AUTO 0.75 K/mm3 (0.16-1.47); MONOCYTES PERCENT AUTO 6 % (4-13); Mean Corpuscular HGB 30.1 pg (26.0-34.0); Mean Corpuscular HGB Conc 33.6 g/dL (31.5-36.5); Mean Corpuscular Volume 90 fL (80-100); Mean Platelet Volume 9.8 fL (9.1-12.4); NEUTROPHILS ABSOLUTE AUTO 10.42 K/mm3 (1.96-9.15); NEUTROPHILS PERCENT AUTO 83 % (41-73); Platelet Count 211 K/mm3 (150-400); RDW Coefficient Variation 11.9 % (11.7-14.2); RDW Standard Deviation 39.1 fL (35.1-46.3); Red Blood Cell Count 3.29 M/mm3 (3.80-5.20); White Blood Cell Count 12.63 K/mm3 (4.00-11.30)
--- NOTE | 2018-09-28 06:23 | NUR ---
SUMMARY PT REPORTING IMPROVED PAIN CONTROL WITH IV DILAUDID 2 MG DOSE. NOT FEEELING SHE WANTS TO TRY PO DILAUDID REPORTS SHE DOES NOT DO WELL WITH PO FORM. VSS.NO FURTHER WOOZY FEELINGS. PT HAS BEEN UP IN ROOM REPOSITIONS SELF IN BED.
--- NOTE | 2018-09-28 15:37 | NUR ---
PT IS POD1 FOR LAVH. NO ACUTE CHANGE TODAY, VSS. SURGICAL SITES WNL, SMALL AMT VAGINAL BLEED, FRANSISCO PAD CHANGED X1. PT REPORTS CRAMPING PAIN, RELIEVED WITH IV DILAUDID, PT STATES PO DILAUDID DOES NOT SEEM TO HELP PAIN WELL IV. ABLE TO TOLERATE SMALL AMOUNT OF REGULAR DIET. NAUSEA X1, NO EMESIS. PT IS VOIDING AND UP IN ROOM FOR MEALS. DENIES GAS OR BM TODAY. ENCOURAGING MOBILITY. NO ACUTE SAFETY CONCERNS AT THIS TIME. WILL CTM AND REPORT TO MAURICIO RN.
--- NOTE | 2018-09-29 05:44 | NUR ---
PATIENT IS RESTING WITH CALL LIGHT IN REACH.
--- NOTE | 2018-09-29 06:38 | NUR ---
SHIFT SUMMARY HAS BEEN RESTING WELL THROUGHOUT SHIFT. AMBULATING IN ROOM WITHOUT ASSISTANCE. REPOSITION SELF IN BED. REITERATED USE OF CALL BRAVO WITH NEEDS, VOICES UNDERSTANDING. SAFETY MEASURES IN PLACE. WILL GIVE HAND OFF TO ONCOMING SHIFT USING SBAR.
--- NOTE | 2018-09-29 16:41 | NUR ---
SHIFT SUMMARY PT HAS DONE OKAY TODAY. EPISODES OF NAUSEA WITH NO EMESIS REPORTED. C/O OF HIGH PAIN BUT GOOD RELIEF WITH IV DILAUDID. VOIDING WELL, TOLERATING SMALL AMOUNTS OF SOLID FOODS, DRINKING PLENTY OF WATER, PASSING GAS BUT NO BM. UP IND IN ROOM, AMBULATES WELL.
[2018-09-29 17:27] LABS: BASOPHILS ABSOLUTE AUTO 0.03 K/mm3 (0.00-0.23); BASOPHILS PERCENT AUTO 0 % (0-2); EOSINOPHILS ABSOLUTE AUTO 0.24 K/mm3 (0.00-0.68); EOSINOPHILS PERCENT AUTO 3 % (0-6); Hematocrit 33.4 % (33.0-51.0); Hemoglobin 10.7 g/dL (11.5-16.0); IMMATURE GRAN ABSOLUTE AUTO 0.02 K/mm3 (0.00-0.10); IMMATURE GRAN PERCENT AUTO 0 % (0-1); LYMPHOCYTES ABSOLUTE AUTO 1.74 K/mm3 (0.84-5.20); LYMPHOCYTES PERCENT AUTO 21 % (21-46); MONOCYTES ABSOLUTE AUTO 0.63 K/mm3 (0.16-1.47); MONOCYTES PERCENT AUTO 8 % (4-13); Mean Corpuscular HGB 29.6 pg (26.0-34.0); Mean Corpuscular Volume 92 fL (80-100); Mean Platelet Volume 9.6 fL (9.1-12.4); NEUTROPHILS ABSOLUTE AUTO 5.47 K/mm3 (1.96-9.15); NEUTROPHILS PERCENT AUTO 67 % (41-73); Platelet Count 202 K/mm3 (150-400); RDW Coefficient Variation 11.8 % (11.7-14.2); RDW Standard Deviation 39.8 fL (35.1-46.3); Red Blood Cell Count 3.62 M/mm3 (3.80-5.20); White Blood Cell Count 8.13 K/mm3 (4.00-11.30)
--- NOTE | 2018-09-30 06:55 | NUR ---
recvd report from previous shift RN Summer, pt awake in bed, bed in lowest position, call light within reach, bed rails up x 2. pt a/o x 4, pleasant/cooperative, requesting pain medication. This RN relayed to pt that her IV medication was not able to be given per apr yet, offered PO analgesia, pt said she would wait for IV medication. pt provided with shower materials and set up, encouraged to shower and dress.
[2018-09-30] MEDS ORDERED: DOCU100 PO (13:57)
[2018-09-30] MEDS ORDERED: Milk Of Ma400 MG/5 M PO (13:58)
[2018-09-30] MEDS ORDERED: SIME80CH PO (13:58)
[2018-11-13] MEDS ORDERED: Benadryl Itch28.3 G1 TOP (16:30)
[2018-11-13] MEDS ORDERED: DIPH50 PO (16:30)
[2018-11-13] MEDS ORDERED: Rocephin 1g1 G/50 ML IV (16:37)
== END 2018-09-30 14:33 | disposition home or self-care (01) ==
LOC: ORSCMMR 08:50 → ORD 11:00 → ORSCMMR 11:00 → SURS 16:43 → ORSCMMR 09-30 14:33 → SURS 09-30 14:33
PROVIDERS: Obstetrics & Gynecology
PROC: 0UT1FZZ Resection of Left Ovary, Via Natural or Artificial Opening With Percutaneous Endoscopic Assistance (ICD-10-PCS; principal; 2018-09-27 11:00)
PROC: 0UT9FZZ Resection of Uterus, Via Natural or Artificial Opening With Percutaneous Endoscopic Assistance (ICD-10-PCS; principal; 2018-09-27 11:00)
DX: N92.0 Excessive and frequent menstruation with regular cycle (principal); N94.6 Dysmenorrhea, unspecified; N80.3 Endometriosis of pelvic peritoneum; Z85.3 Personal history of malignant neoplasm of breast; Z17.0 Estrogen receptor positive status [ER+]; N73.6 Female pelvic peritoneal adhesions (postinfective)
CPT/HCPCS: 82565; 85014; 85018; 85025; 86850; 86900; 86901; 88307; 94762; J0171; J0690; J1100; J1170; J1200; J1650; J1885; J2250; J2370; J2405; J2550; J2704; J2710; J2765; J3010; J3030; J7030; J7120

== ENCOUNTER 2018-10-01 15:00 | Emergency (ER) | payer OTHER ==
[~2018-10-01] VITALS: Ht 162.6 cm; Wt 65.8 kg
[2018-10-01 18:48] LABS: BASOPHILS ABSOLUTE AUTO 0.04 K/mm3 (0.00-0.23); BASOPHILS PERCENT AUTO 1 % (0-2); EOSINOPHILS ABSOLUTE AUTO 0.24 K/mm3 (0.00-0.68); EOSINOPHILS PERCENT AUTO 4 % (0-6); Hematocrit 36.6 % (33.0-51.0); Hemoglobin 12.1 g/dL (11.5-16.0); IMMATURE GRAN ABSOLUTE AUTO 0.02 K/mm3 (0.00-0.10); IMMATURE GRAN PERCENT AUTO 0 % (0-1); LYMPHOCYTES ABSOLUTE AUTO 1.28 K/mm3 (0.84-5.20); LYMPHOCYTES PERCENT AUTO 20 % (21-46); MONOCYTES ABSOLUTE AUTO 0.54 K/mm3 (0.16-1.47); MONOCYTES PERCENT AUTO 9 % (4-13); Mean Corpuscular HGB 29.4 pg (26.0-34.0); Mean Corpuscular HGB Conc 33.1 g/dL (31.5-36.5); Mean Platelet Volume 9.4 fL (9.1-12.4); NEUTROPHILS ABSOLUTE AUTO 4.22 K/mm3 (1.96-9.15); NEUTROPHILS PERCENT AUTO 67 % (41-73); Platelet Count 260 K/mm3 (150-400); RDW Coefficient Variation 11.9 % (11.7-14.2); RDW Standard Deviation 38.4 fL (35.1-46.3); Red Blood Cell Count 4.11 M/mm3 (3.80-5.20); White Blood Cell Count 6.34 K/mm3 (4.00-11.30)
[2018-10-01 18:51] LABS: Mean Corpuscular Volume 89 fL (80-100)
[2018-10-01 19:13] LABS: Alanine Aminotransfer (ALT/SGP 19 U/L (12-78); Albumin, Blood 3.9 g/dL (3.4-5.0); Alk Phos 59 U/L (50-136); Anion Gap 5 mmol/L (6-16); Aspartate Aminotrans (AST/SGOT 17 U/L (12-37); Bilirubin, Total 0.6 mg/dL (0.1-1.0); Blood Urea Nitrogen 9 mg/dL (8-24); Bun/Creatinine Ratio 20.5 (12.0-20.0); CO2, Blood 29 mmol/L (21-32); Calcium, Blood 9.2 mg/dL (8.5-10.1); Chloride, Blood 105 mmol/L (98-108); Creatinine, Blood 0.44 mg/dL (0.40-1.00); Globulin, Blood 3.8 g/dL (2.2-4.0); Glomerular Filtration Rate >60 (60-); Glucose, Blood 97 mg/dL (70-99); Potassium, Blood 4.1 mmol/L (3.5-5.5); Sodium, Blood 139 mmol/L (136-145); Total Protein, Blood 7.7 g/dL (6.4-8.2)
[2018-11-13] MEDS ORDERED: Benadryl Itch28.3 G1 TOP (16:30)
[2018-11-13] MEDS ORDERED: DIPH50 PO (16:30)
[2018-11-13] MEDS ORDERED: Rocephin 1g1 G/50 ML IV (16:37)
== END 2018-10-01 20:40 | disposition home or self-care (01) ==
LOC: ER 15:00
PROVIDERS: Physician Assistant
DX: G89.18 Other acute postprocedural pain (principal); R10.30 Lower abdominal pain, unspecified; F41.9 Anxiety disorder, unspecified; F32.9 Major depressive disorder, single episode, unspecified; Z87.01 Personal history of pneumonia (recurrent); Z79.899 Other long term (current) drug therapy; Z90.710 Acquired absence of both cervix and uterus
CPT/HCPCS: 74176; 80053; 83690; 85025; 96361; 96374; 99284-25; J1642; J2405; J7030; Q0163

== ENCOUNTER 2018-10-04 00:20 | Day surgery (SDC) | payer OTHER ==
--- NOTE | 2018-09-30 14:41 | NUR ---
PT PROVIDED WITH DISCHARGE INSTRUCTIONS, PRINTED MATERIALS. PT STATES UNDERSTANDING OF INSTRUCTIONS. MEDIPORT DEACCESSED WITHIN NORMAL LIMIT, HEPARIN LOCKED. PT'S TRANSFERRED PT'S BELONGINGS TO VEHICLE. PT REQUESTS TO WALK TO AWAITING VEHICLE.
[2018-10-04 10:20] LABS: BASOPHILS ABSOLUTE AUTO 0.05 K/mm3 (0.00-0.23); BASOPHILS PERCENT AUTO 1 % (0-2); EOSINOPHILS PERCENT AUTO 4 % (0-6); Hematocrit 36.1 % (33.0-51.0); Hemoglobin 12.1 g/dL (11.5-16.0); IMMATURE GRAN ABSOLUTE AUTO 0.02 K/mm3 (0.00-0.10); IMMATURE GRAN PERCENT AUTO 0 % (0-1); LYMPHOCYTES ABSOLUTE AUTO 1.08 K/mm3 (0.84-5.20); LYMPHOCYTES PERCENT AUTO 23 % (21-46); MONOCYTES ABSOLUTE AUTO 0.42 K/mm3 (0.16-1.47); MONOCYTES PERCENT AUTO 9 % (4-13); Mean Corpuscular HGB 29.2 pg (26.0-34.0); Mean Corpuscular HGB Conc 33.5 g/dL (31.5-36.5); Mean Corpuscular Volume 87 fL (80-100); Mean Platelet Volume 9.4 fL (9.1-12.4); NEUTROPHILS ABSOLUTE AUTO 2.95 K/mm3 (1.96-9.15); NEUTROPHILS PERCENT AUTO 63 % (41-73); Platelet Count 303 K/mm3 (150-400); RDW Coefficient Variation 12.3 % (11.7-14.2); RDW Standard Deviation 38.9 fL (35.1-46.3); Red Blood Cell Count 4.15 M/mm3 (3.80-5.20); White Blood Cell Count 4.72 K/mm3 (4.00-11.30)
[2018-10-04 10:37] LABS: Alanine Aminotransfer (ALT/SGP 33 U/L (12-78); Albumin/Globulin Ratio 1.1 (0.8-1.8); Alk Phos 66 U/L (50-136); Anion Gap 7 mmol/L (6-16); Aspartate Aminotrans (AST/SGOT 24 U/L (12-37); Bilirubin, Total 0.4 mg/dL (0.1-1.0); Blood Urea Nitrogen 15 mg/dL (8-24); Bun/Creatinine Ratio 30.4 (12.0-20.0); CO2, Blood 26 mmol/L (21-32); Calcium, Blood 9.1 mg/dL (8.5-10.1); Chloride, Blood 109 mmol/L (98-108); Creatinine, Blood 0.49 mg/dL (0.40-1.00); Globulin, Blood 3.6 g/dL (2.2-4.0); Glomerular Filtration Rate >60 (60-); Glucose, Blood 89 mg/dL (70-99); Potassium, Blood 3.9 mmol/L (3.5-5.5); Sodium, Blood 142 mmol/L (136-145); Total Protein, Blood 7.6 g/dL (6.4-8.2)
[2018-11-13] MEDS ORDERED: Benadryl Itch28.3 G1 TOP (16:30)
[2018-11-13] MEDS ORDERED: DIPH50 PO (16:30)
[2018-11-13] MEDS ORDERED: Rocephin 1g1 G/50 ML IV (16:37)
== END 2018-10-04 10:10 | disposition home or self-care (01) ==
LOC: ATC 00:20
PROVIDERS: Internal Medicine Hematology & Oncology
DX: Z01.812 Encounter for preprocedural laboratory examination (principal); Z85.3 Personal history of malignant neoplasm of breast
CPT/HCPCS: 36591; 80053; 85025; J1642

== ENCOUNTER 2018-11-03 11:44 | Day surgery (SDC) | payer OTHER ==
[2018-11-03 13:05] LABS: BASOPHILS ABSOLUTE AUTO 0.05 K/mm3 (0.00-0.23); BASOPHILS PERCENT AUTO 0 % (0-2); EOSINOPHILS ABSOLUTE AUTO 0.05 K/mm3 (0.00-0.68); EOSINOPHILS PERCENT AUTO 0 % (0-6); Hematocrit 40.4 % (33.0-51.0); Hemoglobin 13.4 g/dL (11.5-16.0); IMMATURE GRAN ABSOLUTE AUTO 0.02 K/mm3 (0.00-0.10); IMMATURE GRAN PERCENT AUTO 0 % (0-1); LYMPHOCYTES ABSOLUTE AUTO 0.68 K/mm3 (0.84-5.20); LYMPHOCYTES PERCENT AUTO 6 % (21-46); MONOCYTES ABSOLUTE AUTO 0.82 K/mm3 (0.16-1.47); MONOCYTES PERCENT AUTO 7 % (4-13); Mean Corpuscular HGB 29.4 pg (26.0-34.0); Mean Corpuscular HGB Conc 33.2 g/dL (31.5-36.5); Mean Corpuscular Volume 89 fL (80-100); Mean Platelet Volume 9.8 fL (9.1-12.4); NEUTROPHILS ABSOLUTE AUTO 10.06 K/mm3 (1.96-9.15); NEUTROPHILS PERCENT AUTO 86 % (41-73); Platelet Count 228 K/mm3 (150-400); RDW Coefficient Variation 11.9 % (11.7-14.2); RDW Standard Deviation 38.8 fL (35.1-46.3); Red Blood Cell Count 4.56 M/mm3 (3.80-5.20); White Blood Cell Count 11.68 K/mm3 (4.00-11.30)
[2018-11-13] MEDS ORDERED: Benadryl Itch28.3 G1 TOP (16:30)
[2018-11-13] MEDS ORDERED: DIPH50 PO (16:30)
[2018-11-13] MEDS ORDERED: Rocephin 1g1 G/50 ML IV (16:37)
== END 2018-11-03 12:10 | disposition home or self-care (01) ==
LOC: ATC 11:44
PROVIDERS: Obstetrics & Gynecology
DX: N99.820 Postprocedural hemorrhage of a genitourinary system organ or structure following a genitourinary system procedure (principal); C50.811 Malignant neoplasm of overlapping sites of right female breast; Z91.048 Other nonmedicinal substance allergy status; Z88.8 Allergy status to other drugs, medicaments and biological substances; Z79.899 Other long term (current) drug therapy
CPT/HCPCS: 36591; 85025; J1642

== ENCOUNTER 2018-11-03 18:19 | Inpatient (IN) | payer OTHER ==
--- NOTE | 2018-11-03 00:19 | NUR ---
CALL OUT TO DR MARTINEZ FOR PT C/O 1 MG DILAUDID INEFFECTIVE.UNABLE TO REACH DOCTOR.
--- NOTE | 2018-11-03 01:20 | NUR ---
MESSAGE OUT TO DR NOONAN O.C. REGARDING PT C/O DILAUDID 1 MG INEFFECTIVE FOR PAIN CONTROL.WAITED RETURN CALL.SECOND CALL PLACED FOR SAME. I SPOKE WITH DR NOONAN AND RECEIVED ORDERS FOR DOSE CHANGE TO 1-2 MG DILAUDID WITH SAME INTERVAL Q 2HR PRN.PT ALSO C/O NAUSEA AND CONTINUED ITCHING.PT RECEIVED ZOFRAN AND BENADRYL.PT REPORTED SEEING MILD WELTS AND ITCHING MID WAY THROUGH FLAGYL.NO WELTS NOTED WHEN I ARRIVED TO CHECK,WELTS HAD RESOLVED.PT REPORTS HAS RECEIVED FLAGYL WITH PRIOR ADMIT AND HAD RESULTING NAUSEA. I ADVISED PT WE WILL BE MONTORING CLOSELY FOR ANY CONCERNS.
--- NOTE | 2018-11-03 18:35 | NUR ---
pt arrived to room 216 direct admit ans service called
--- NOTE | 2018-11-03 19:37 | NUR ---
dr jackson called for a benadryl order for itching under the opsite for her mediport
--- NOTE | 2018-11-03 21:03 | NUR ---
CALLED OUT TO DR MARTINEZ REGARDING PT REQUEST FOR CHANGE OF PAIN MED INTERVAL TO Q 2 HR PRN.ORDERS RECEIVED.
--- NOTE | 2018-11-04 06:14 | NUR ---
SUMMARY IMPROVED PAIN CONTROL.ONLY SCANT VAG SPOTTING WITH WIPING ATER VOID. OUT TO RADIOLOGY OR CT.
--- NOTE | 2018-11-04 19:24 | NUR ---
PATIENT STATES PAIN TOLERABLE LEVEL WITH IV PAIN MED. DENIES NAUSEA; TAKING PO. UP TO SHOWER THIS SHIFT. PATIENT WITH FLUSHED FACE; STATES SHE GETS THAT WITH ABX. DENIES ANY OTHER SIDE EFFECTS/SX. SPOUSE AND CHILDREN IN TO SEE THIS YUKI. NO ACUTE CHANGES. NPO AFTER 2400 FOR OC TO OR TOMORROW.
--- NOTE | 2018-11-05 03:46 | NUR ---
PT RECEIVING DILAUDID,BENADRYL,AND ZOFRAN. STOPPED FLAGYL AND NEW ORDERS FOR CLINDAMYCIN RELATED TO FLUSHED FACE AND H/A WITH FLAGYL. WITH MOST RECENT DOSE OF MEDS, I WAS BRINGIN ICE PACKFOR BACK OF NECK AND NOTED PT FELL ASLEEP. I NOTED RESPIRATIONS SHALLOW WITH SLIGHT DUSKY APPEARANCE.SLOW TO WAKE.I PLACED N/C WITH SAME TIME CK OF VS NOTING IMMEDIATE RA SAT READING IN 50'S.TEMP>101 UNCLEAR IF SIGNAL STRONG BUT APPEARED SO TO MACHINE STEMMER.PT WITH RAPID RETURN TO 100 % ON 2 L.RR 14.PT ALERT AFTER AWAKENED. DENIED SOB. RESP APPEARING EVEN AND UNLABORED.COLOR PINK. NARCAN ORDERED PRN,CONT BIOX. DISSCUSSED WITH PT RESP DEPRESSION RISK WITH HIGH DOSES OF PAIN MEDS, WELL BENADRYL. PT TEARFUL. VERB AFRAID OF PAIN GETTING OUT OF CONTROL IF UNABLE TO TAKE ADEQUATE PAIN MEDS. REASSURED WOULD FOLLOW UP WITH DOCTOR PER PHONE, BUT ALSO NEED TO CONT MONITOR RESP STATUS. R/A RETURNING TO 96%.DID NOT REQUIRE NARCAN. I CALLED DR MARTINEZ AND ADVISED OF ABOVE. HE INSTRUCTED ME TO CONT 02,BIOX,GIVE NEXT DOSE DILAUDID AT 0415 1MG DOSE AND MONITOR EFFECT. ALSO INSTRUCTED ME TO GIVE NEXT BENADRYL DOSE AT 25 MG WHILE MONITORING.I DISCUSSED THIS WITH PT. HOWEVER,REPLACED 02 @ 2L.
--- NOTE | 2018-11-05 07:20 | NUR ---
SUMMARY GAVE DILAUDID 1 MG INSTRUCTED AND GAVE BENADRYL 25 MG LAST DOSE WITHOUT FURTHER DESATS. PT REMAINS ON 2 L. PT VERB DILAUDID 1 MG IS NOT GOING TO BE EFFECTIVE. DAY RN AGREES TO MONITOR AND TREAT ACCORDINGLY.
--- NOTE | 2018-11-05 19:28 | NUR ---
SUMMARY: PT DID WELL OVERALL TODAY. DID NOT GO TO OR. VSS, A/O AND INDEPENDENT IN THE ROOM. PT CONTINUES TO RATE PAIN 4-6 AT LOWER ABD. MEDICATED PER EMAR ABOUT Q3. PT MEDIPORT INFUSING TKO WITH ANTIBIOTICS. PLAN IS TO CONTINUE ABX AND MONITOR PT FOR PAIN. REPORT GIVEN TO NOC NICHOLE CAPONE
--- NOTE | 2018-11-06 06:49 | NUR ---
SHIFT SUMMARY: PT PAINFUL THROUGHSHIFT. GIVEN 2MG DILAUDID Q2 PER EMAR. PT ALSO GIVEN BENADRYL Q4 FOR C/O ITCHINESS. JAYCE REG DIET. DENIES N/V. INDEPENDENT IN ROOM. VOIDING WELL. MEDIPORT TO LEFT UPPER CHEST. PT REPORTING SCANT AMT OF BLOODY DISCHARGE. ALSO REPORTING SCNT AMT OF PINK DISCHARGE WHEN URINATING. ABX INFUSING WITH FLUIDS TKO.
--- NOTE | 2018-11-06 14:57 | NUR ---
WONDERLY HERE TO SEE PT. DISCUSSED IV MEDS AND BOWEL CARE. SEE ORDERS.
--- NOTE | 2018-11-06 19:02 | NUR ---
SHIFT SUMMARY PT INDEPENDANT IN RM, TOLERATING FOOD AND FLUIDS, VOIDING. PAIN HAS BEEN MANAGED WITH MEDS PER ORDER. PT C/O ITCHING. WONDERLY CALLED. TOPICAL CREAM ORDERED. PT STILL HAS NOT HAD BM. MIRALAX STARTED TODAY PER ORDER. BEEN ASSISTED WITH ADL'S PRN. PT AMBULATED WITH FAMILY IN [facility] TIMES TODAY.
[2018-11-07 05:37] LABS: BASOPHILS ABSOLUTE AUTO 0.03 K/mm3 (0.00-0.23); BASOPHILS PERCENT AUTO 1 % (0-2); EOSINOPHILS ABSOLUTE AUTO 0.16 K/mm3 (0.00-0.68); EOSINOPHILS PERCENT AUTO 4 % (0-6); Hematocrit 34.5 % (33.0-51.0); Hemoglobin 11.1 g/dL (11.5-16.0); IMMATURE GRAN PERCENT AUTO 0 % (0-1); LYMPHOCYTES ABSOLUTE AUTO 1.46 K/mm3 (0.84-5.20); LYMPHOCYTES PERCENT AUTO 40 % (21-46); MONOCYTES ABSOLUTE AUTO 0.44 K/mm3 (0.16-1.47); MONOCYTES PERCENT AUTO 12 % (4-13); Mean Corpuscular HGB 29.4 pg (26.0-34.0); Mean Corpuscular HGB Conc 32.2 g/dL (31.5-36.5); Mean Platelet Volume 9.7 fL (9.1-12.4); NEUTROPHILS ABSOLUTE AUTO 1.52 K/mm3 (1.96-9.15); NEUTROPHILS PERCENT AUTO 42 % (41-73); Platelet Count 206 K/mm3 (150-400); RDW Coefficient Variation 11.4 % (11.7-14.2); RDW Standard Deviation 38.5 fL (35.1-46.3); Red Blood Cell Count 3.77 M/mm3 (3.80-5.20); White Blood Cell Count 3.61 K/mm3 (4.00-11.30)
--- NOTE | 2018-11-07 05:43 | NUR ---
SHIFT SUMMARY: NO ACUTE CHANGES OVER NIGHT. PT C/O OF LOWER ABD PAIN. PAIN MANAGED WITH 2MG DILAUDID PER EMAR. REPORTS OCC NAUSEA AFTER SCHED ABX. MEDICATED WITH ZOFRAN ONCE. NO EMESIS. PT NOT GIVEN BENADRYL THIS SHIFT ITCHINESS APPEARS TO BE IMPROVING. VOIDING WELL. URINE APPEARS CLOUDY. PT DENIES URINARY SYMPTOMS. IND IN ROOM. S/O AT BEDSIDE.
[2018-11-07 05:45] LABS: Mean Corpuscular Volume 92 fL (80-100)
--- NOTE | 2018-11-07 10:03 | NUR ---
REPORT FROM NICHOLE BHANDARI. PT WALKED DOWN TO [facility] AND TO ROOM 129.
--- NOTE | 2018-11-07 10:07 | NUR ---
PT TRANSFERED TO L&D UNIT WITH THIS RN AND L&D RN. PT HAD EXPRESSED ANXIETY ABOUT TRANSFER. L&D RN BRENT AND ALL SOURCE INTELLIGENCE ANALYST TALKED WITH PATIENT. BELONGINGS, CHART, AND ANTIBIOTICS TRANSFERRED WITH PT.
--- NOTE | 2018-11-07 11:37 | NUR ---
SPOUSE, CHILDREN, AND PARENTS IN TO SEE PATIENT.
--- NOTE | 2018-11-07 11:37 | NUR ---
PT REQUESTED DILAUDID FOR PAIN LEVEL OF 6. i CAME BACK WITH 1MG AND SHE STATES SHE NORMALLY NEEDS 2 MG. THE ORDER STATES 1-2 MG SO PER PT REQUEST, I ADMINISTERED 2 MG. PT STS PAIN DECREASED FROM 6/10 TO 4/10 ABOUT 5 MIN AFTER DILAUDUD. PT ALSO ASKED IF SHE NEEDED OXYGEN IN HER NOSE PREVIOUSLY SHE WAS FOUND TO BE HARD TO AROUSE. I REVUEWED HER ORDER WHICH STATES SHE SHOULD BE ON CONTINUOUS BIOX WITH IV PAIN MEDICATIONS. I TOLD THIS TO THE PATIENT. BUT SHE SAYS SHE ONLY HAS THE BIOX ON WHEN SHE SLEEPS AND DIDNT WANT TO BE HOOKED UP CONSTANTLY. VITALS ARE DUE AT 1200 AND I TOLD HER I WOULD CHECK HER BIOX WITH THIS SET OF VITALS AND IF HER O2 IS FOUND TO BE BELOW 90% WE WILL KEEP HER ON MONITOR AND TREAT WITH OXYGEN ACCORDINGLY. SHE IS ACCEPTING OF [facility] SUGGESTION.
--- NOTE | 2018-11-07 22:00 | NUR ---
PATIENT DISCUSSED WITH RN ABOUT WEARING OXYGEN WHEN SHE SLEEPS. PATIENT STATED HER OXYGEN LEVELS DROPPED TO THE 50'S WHILE ASLEEP WHEN ON ANOTHER UNIT. RN DISCUSSED WITH PATIENT THAT WE COULD CONTINUOUSLY MONITOR PATIENT O2 LEVELS T/O NIGHT SHE SLEPT. PATIENT DID NOT WANT TO DO THIS SO RN DISCUSSED THAT WE WOULD MONITOR O2 LEVELS EVERY 4 HOURS WITH VITALS AND NEEDED AND NOTIFY PROVIDED AND TREAT NEEDED. PATIENT WAS AGREEABLE WITH THIS. O2 100% WITH 1930 VS.
--- NOTE | 2018-11-08 07:47 | NUR ---
CHARTING REVIEWED, AGREE WITH CHARTING AND ASSESSMENT
--- NOTE | 2018-11-08 11:11 | NUR ---
PAIN PT LAY IN BED ON HER SIDE ROLLED IN A BALL AND STATES SHE REALLY NEEDS PAIN MEDICATION AND RATES IT A 7. I GO TO GET THE PAIN MEDS AND WHEN ARRIVING BACK IN ROOM SHE IS SITTING UP IN BED TALKING WITH HER GUEST IN THE ROOM AND DOESNT HAVE THE SAME PAINFUL LOOK WHEN SHE REQUESTED MEDS. SHE STATES SHE IS ITCHY BUT ITS TOO EARLY TO GIVE BENEDRYL AND NOW ALSO SAYS SHE IS NAUSEOUS AND DOESNT WANT TO TRY ANY CRACKERS. SHE HAS TOLERATED PO FOODS WELL. ZOFRAN TO BE GIVEN.
--- NOTE | 2018-11-08 17:37 | NUR ---
ASSESSMENT OVERALL PATIENT HAD A GOOD DAY. AMBULATING IN THE HALLS WITH HER FAMILY. NO NEW BLEEDING SEEN JUST SOME PINKISH DISCHARGE. PT STILL NEEDING HER PAIN MEDS EVERY 2-3 HOURS ALONG WITH BENEDRYL FOR ITCHING AND ZOFRAN FOR NAUSEA. PT CONTINUES TO USE HEATING BAD AND POSITION CHANGES. REPORT WILL BE GIVEN TO ONCOMING SHIFT.
--- NOTE | 2018-11-09 02:09 | NUR ---
0050 Pt request Benadryl with next med given. States she is allergic to the tegaderm dressing on the port site. No redness, swelling @ port site. Port flushs easily, meds infuse freely.
[2018-11-09 05:50] LABS: BASOPHILS ABSOLUTE AUTO 0.03 K/mm3 (0.00-0.23); BASOPHILS PERCENT AUTO 1 % (0-2); EOSINOPHILS ABSOLUTE AUTO 0.17 K/mm3 (0.00-0.68); EOSINOPHILS PERCENT AUTO 5 % (0-6); Hematocrit 37.4 % (33.0-51.0); Hemoglobin 12.2 g/dL (11.5-16.0); IMMATURE GRAN ABSOLUTE AUTO 0.01 K/mm3 (0.00-0.10); IMMATURE GRAN PERCENT AUTO 0 % (0-1); LYMPHOCYTES ABSOLUTE AUTO 1.37 K/mm3 (0.84-5.20); LYMPHOCYTES PERCENT AUTO 39 % (21-46); MONOCYTES ABSOLUTE AUTO 0.41 K/mm3 (0.16-1.47); MONOCYTES PERCENT AUTO 12 % (4-13); Mean Corpuscular HGB 28.8 pg (26.0-34.0); Mean Corpuscular HGB Conc 32.6 g/dL (31.5-36.5); Mean Platelet Volume 9.2 fL (9.1-12.4); NEUTROPHILS ABSOLUTE AUTO 1.57 K/mm3 (1.96-9.15); NEUTROPHILS PERCENT AUTO 44 % (41-73); Platelet Count 252 K/mm3 (150-400); RDW Coefficient Variation 11.6 % (11.7-14.2); Red Blood Cell Count 4.23 M/mm3 (3.80-5.20); White Blood Cell Count 3.56 K/mm3 (4.00-11.30)
[2018-11-09 05:52] LABS: Mean Corpuscular Volume 88 fL (80-100)
--- NOTE | 2018-11-09 11:54 | NUR ---
PATIENT UP AMBULATING THE HALLS
--- NOTE | 2018-11-09 13:21 | NUR ---
pt back from the cafeteria, x-ray called to come and get patient for her ct scann. pt did ask about pain meds, they were given at 1236 and not due at this time.
--- NOTE | 2018-11-10 00:44 | NUR ---
PATIENT REQUESTED BENEDRYL FOR ITCHING. PATIENT STATED PAIN WAS INCREASING, NOT TIME FOR PAIN MEDICATION AT THIS TIME. RN SUGGESTED USING HEATING PAD FOR PAIN RELIEF.
--- NOTE | 2018-11-10 07:15 | NUR ---
LATE ENTRY PATIENT CALLED RN FOR PAIN MEDICAION AND BENADRYL BEFORE THEY WERE DUE MULTIPLE TIMES T/O SHIFT. DURING MEDICATION ADMINISTRATION PATIENT ASKED IF RN WOULD PUSH THE MEDICATION FASTER. RN EDUCATED PATIENT ON BEST PRACTICE FOR MEDICATION ADMINISTRATION. WITH 607 ADMINISTRATION OF DILUADID PATIENT WAS TIMING RN WITH HER WATCH. T/O SHIFT RN ENCOURAGED PATIENT TO GET SOME REST AND USE HEATING PAD FOR PAIN RELIEF.
--- NOTE | 2018-11-10 12:40 | NUR ---
TRANSPORTED PT UP-STAIRS TO ROOM 230, PATIENT REFUSED WHEELCHAIR PT STATES SHE COULD WALK. REPT CALL TO RN BY Veronica ABERNATHY RN
--- NOTE | 2018-11-10 12:45 | NUR ---
pt arrived to room 230 amb from [facility] stated feeling better
--- NOTE | 2018-11-10 14:31 | NUR ---
wondernorbert by to see pt
--- NOTE | 2018-11-10 16:45 | NUR ---
NEW MEDIPORT HUB AND DRESSING PLACED
--- NOTE | 2018-11-10 18:08 | NUR ---
pt visiting with daughter req pain meds 2 mg ivp dilaudid given
--- NOTE | 2018-11-11 16:14 | NUR ---
SHIFT SUMMARY NO ACUTE CHANGES TODAY. PT CONT TO RECEIVE 2MG IV DILAUDID FOR LOWER ABD PAIN. BENEDRYL PRN FOR ITCHING. PT DID GET NAUSEATED X1 TODAY AND ZOFRAN SEEMED TO BE EFFECTIVE. PT JAYCE REG DIET AND IS INDEP IN ROOM AND AMBULATES HALLWAYS. PT REPORTS SCANT PINK VAGINAL BLEEDING WHEN WIPING AFTER USING RESTROOM. IV ABX PER ORDERS. PLAN IS FOR POSSIBLE DISCHARGE TOMORROW. PT USES CALL LIGHT APPROPRIATELY.
--- NOTE | 2018-11-12 06:19 | NUR ---
PATIENT HAS HAD AND UNEVENTFUL NIGHT. SHE WAS MEDICATED FOR PAIN AND ITCHING THROUGHOUT THE SHIFT. PATIENT'S PAIN IS IN THE LOWER ABDOMINAL AREA. SHE IS UP IN THE ROOM WITH BRP AND OCCASIONALLY WALKING THE MARIE.
--- NOTE | 2018-11-12 15:13 | NUR ---
SHIFT SUMMARY NO ACUTE CHANGES THIS SHIFT. PT CONT TO RECEIVE 2MG IV DILAUDID FOR PAIN. IV ABX ORDERED. PT INDEP IN ROOM. JAYCE REG DIET. PT USES CALL LIGHT APPROPRIATELY.
[2018-11-12 17:24] LABS: BASOPHILS ABSOLUTE AUTO 0.04 K/mm3 (0.00-0.23); BASOPHILS PERCENT AUTO 1 % (0-2); EOSINOPHILS ABSOLUTE AUTO 0.17 K/mm3 (0.00-0.68); EOSINOPHILS PERCENT AUTO 4 % (0-6); Hematocrit 39.2 % (33.0-51.0); Hemoglobin 12.9 g/dL (11.5-16.0); IMMATURE GRAN ABSOLUTE AUTO 0.01 K/mm3 (0.00-0.10); IMMATURE GRAN PERCENT AUTO 0 % (0-1); LYMPHOCYTES PERCENT AUTO 41 % (21-46); MONOCYTES ABSOLUTE AUTO 0.52 K/mm3 (0.16-1.47); MONOCYTES PERCENT AUTO 13 % (4-13); Mean Corpuscular HGB 29.1 pg (26.0-34.0); Mean Corpuscular HGB Conc 32.9 g/dL (31.5-36.5); Mean Corpuscular Volume 88 fL (80-100); Mean Platelet Volume 9.2 fL (9.1-12.4); NEUTROPHILS ABSOLUTE AUTO 1.54 K/mm3 (1.96-9.15); NEUTROPHILS PERCENT AUTO 40 % (41-73); Platelet Count 322 K/mm3 (150-400); RDW Coefficient Variation 11.7 % (11.7-14.2); RDW Standard Deviation 37.5 fL (35.1-46.3); Red Blood Cell Count 4.44 M/mm3 (3.80-5.20); White Blood Cell Count 3.88 K/mm3 (4.00-11.30)
--- NOTE | 2018-11-13 07:35 | NUR ---
SHIFT SUMMARY: NO ACUTE CHANGES THROUGHOUT NIGHT. PT RECIEIVING 2MG DILAUDID Q2 PER EMAR. TEARFUL T/O SHIFT R/T PAIN. PT ALSO RECIEIVING BENADRYL Q4 FOR ITCHINESS. PLAN FOR POSSIBLE DISCHARGE TODAY AFTER GIVEN SCHED ABX THEN PT TO FOLLOW UP OUT PATIENT FOR ABX.
[2018-11-13] MEDS ORDERED: Benadryl Itch28.3 G1 TOP ×2 (16:30)
[2018-11-13] MEDS ORDERED: DIPH50 PO ×2 (16:30)
[2018-11-13] MEDS ORDERED: Rocephin 1g1 G/50 ML IV ×2 (16:37)
--- NOTE | 2018-11-13 17:47 | NUR ---
DISCHARGE: DISCHARGE PACKET PRINTED AND REVIEWED WITH PT. PT PORT, HEPARIN LOCKED. PT LEFT UNIT ON FOOT WITH AND BELONGINGS
[2018-11-14] MEDS ORDERED: Rocephin 1g1 G/50 ML IV (18:02)
== END 2018-11-13 17:30 | disposition home or self-care (01) | DRG 863 ==
LOC: SURS 18:19 → BC 11-07 10:15 → SURS 11-10 12:53
PROVIDERS: ADMIT Obstetrics & Gynecology
DX: T81.43XA Infection following a procedure, organ and space surgical site, initial encounter (principal); N99.820 Postprocedural hemorrhage of a genitourinary system organ or structure following a genitourinary system procedure; Z90.13 Acquired absence of bilateral breasts and nipples; Z85.3 Personal history of malignant neoplasm of breast; Z92.21 Personal history of antineoplastic chemotherapy
CPT/HCPCS: 72193; 74177; 85025; 94762; J0696; J1170; J1200; J1642; J2310; J2405; J7120; Q9967

== ENCOUNTER 2018-11-14 09:25 | Day surgery (SDC) | payer OTHER ==
[~2018-11-14 09:25] MED LIST changes: +Rocephin 1g1 G/50 ML IV
[2018-11-14] MEDS ORDERED: Rocephin 1g1 G/50 ML IV (18:02)
== END 2018-11-14 22:39 | disposition home or self-care (01) ==
LOC: ATC 09:25
DX: N99.820 Postprocedural hemorrhage of a genitourinary system organ or structure following a genitourinary system procedure (principal); R11.2 Nausea with vomiting, unspecified; Z91.048 Other nonmedicinal substance allergy status; Z90.710 Acquired absence of both cervix and uterus
CPT/HCPCS: 96365; J0696; J1642

== ENCOUNTER 2018-11-15 14:24 | Day surgery (SDC) | payer OTHER | END 2018-11-15 15:00 | disposition home or self-care (01) | LOC: ATC 14:24 | DX: N99.820 Postprocedural hemorrhage of a genitourinary system organ or structure following a genitourinary system procedure (principal); R11.2 Nausea with vomiting, unspecified; Z79.899 Other long term (current) drug therapy; Z91.048 Other nonmedicinal substance allergy status; Z90.710 Acquired absence of both cervix and uterus | CPT/HCPCS: 96365; J0696; J1642 ==

== ENCOUNTER 2018-11-16 07:43 | Day surgery (SDC) | payer OTHER | END 2018-11-16 15:15 | disposition home or self-care (01) | LOC: ATC 07:43 | DX: N99.820 Postprocedural hemorrhage of a genitourinary system organ or structure following a genitourinary system procedure (principal); Z91.048 Other nonmedicinal substance allergy status; Z90.79 Acquired absence of other genital organ(s); Z90.722 Acquired absence of ovaries, bilateral; Z79.899 Other long term (current) drug therapy; Z88.1 Allergy status to other antibiotic agents; Y83.8 Other surgical procedures as the cause of abnormal reaction of the patient, or of later complication, without mention of misadventure at the time of the procedure | CPT/HCPCS: 96365; J0696; J1642 ==

== ENCOUNTER 2018-11-17 00:40 | Day surgery (SDC) | payer OTHER | END 2018-11-17 16:42 | disposition home or self-care (01) | LOC: ATC 00:40 | DX: C50.811 Malignant neoplasm of overlapping sites of right female breast (principal); Z91.048 Other nonmedicinal substance allergy status | CPT/HCPCS: 96365; J0696; J1642 ==

== ENCOUNTER → 2018-12-09 | Outpatient (CLI) | payer OTHER | END | disposition home or self-care (01) | LOC: PLD 14:51 → LAB SHORT 14:51 | DX: D22.39 Melanocytic nevi of other parts of face (principal) | CPT/HCPCS: 88305 ==

== ENCOUNTER → 2019-03-09 | Outpatient (CLI) | payer OTHER ==
[2019-03-09 10:51] LABS: BASOPHILS ABSOLUTE AUTO 0.04 K/mm3 (0.00-0.23); BASOPHILS PERCENT AUTO 1 % (0-2); EOSINOPHILS ABSOLUTE AUTO 0.07 K/mm3 (0.00-0.68); EOSINOPHILS PERCENT AUTO 2 % (0-6); Hematocrit 41.9 % (33.0-51.0); Hemoglobin 13.6 g/dL (11.5-16.0); IMMATURE GRAN PERCENT AUTO 0 % (0-1); LYMPHOCYTES ABSOLUTE AUTO 1.34 K/mm3 (0.84-5.20); LYMPHOCYTES PERCENT AUTO 34 % (21-46); MONOCYTES ABSOLUTE AUTO 0.33 K/mm3 (0.16-1.47); MONOCYTES PERCENT AUTO 9 % (4-13); Mean Corpuscular HGB 28.3 pg (26.0-34.0); Mean Corpuscular HGB Conc 32.5 g/dL (31.5-36.5); Mean Corpuscular Volume 87 fL (80-100); Mean Platelet Volume 10.6 fL (9.1-12.4); NEUTROPHILS ABSOLUTE AUTO 2.12 K/mm3 (1.96-9.15); NEUTROPHILS PERCENT AUTO 54 % (41-73); Platelet Count 241 K/mm3 (150-400); RDW Coefficient Variation 11.5 % (11.7-14.2); RDW Standard Deviation 37.5 fL (35.1-46.3); Red Blood Cell Count 4.81 M/mm3 (3.80-5.20)
[2019-03-09 11:04] LABS: Percent Saturation 27.5 % (15.0-50.0)
[2019-03-09 11:08] LABS: Alanine Aminotransfer (ALT/SGP 36 U/L (12-78); Albumin, Blood 4.8 g/dL (3.4-5.0); Albumin/Globulin Ratio 1.5 (0.8-1.8); Alk Phos 54 U/L (50-136); Anion Gap 3 mmol/L (6-16); Aspartate Aminotrans (AST/SGOT 17 U/L (12-37); Bilirubin, Total 0.7 mg/dL (0.1-1.0); Blood Urea Nitrogen 10 mg/dL (8-24); Bun/Creatinine Ratio 16.3 (12.0-20.0); CO2, Blood 29 mmol/L (21-32); Calcium, Blood 9.6 mg/dL (8.5-10.1); Chloride, Blood 108 mmol/L (98-108); Creatinine, Blood 0.61 mg/dL (0.40-1.00); Globulin, Blood 3.1 g/dL (2.2-4.0); Glomerular Filtration Rate >60 (60-); Glucose, Blood 88 mg/dL (70-99); Potassium, Blood 3.7 mmol/L (3.5-5.5); Sodium, Blood 140 mmol/L (136-145); Total Protein, Blood 7.9 g/dL (6.4-8.2)
== END | disposition home or self-care (01) ==
LOC: LAB 10:24 → LAB SHORT 10:24
PROVIDERS: Internal Medicine Hematology & Oncology
DX: C50.919 Malignant neoplasm of unspecified site of unspecified female breast (principal)
CPT/HCPCS: 80053; 82306; 82728; 83540; 83550; 85025

== ENCOUNTER 2019-07-21 00:18 | Day surgery (SDC) | payer OTHER ==
[2019-07-21 12:24] LABS: Alanine Aminotransfer (ALT/SGP 27 U/L (12-78); Albumin, Blood 4.4 g/dL (3.4-5.0); Albumin/Globulin Ratio 1.4 (0.8-1.8); Alk Phos 58 U/L (50-136); Anion Gap 12 mmol/L (6-16); Aspartate Aminotrans (AST/SGOT 23 U/L (12-37); Bilirubin, Total 0.7 mg/dL (0.1-1.0); Blood Urea Nitrogen 14 mg/dL (8-24); CO2, Blood 22 mmol/L (21-32); Calcium, Blood 8.7 mg/dL (8.5-10.1); Chloride, Blood 106 mmol/L (98-108); Creatinine, Blood 0.78 mg/dL (0.40-1.00); Globulin, Blood 3.1 g/dL (2.2-4.0); Glomerular Filtration Rate >60 (60-); Glucose, Blood 72 mg/dL (70-99); Potassium, Blood 3.5 mmol/L (3.5-5.5); Sodium, Blood 140 mmol/L (136-145); Total Protein, Blood 7.5 g/dL (6.4-8.2)
[2019-07-21 12:27] LABS: Percent Saturation 34.7 % (15.0-50.0)
[2019-07-21 12:56] LABS: BASOPHILS ABSOLUTE AUTO 0.04 K/mm3 (0.00-0.23); BASOPHILS PERCENT AUTO 1 % (0-2); EOSINOPHILS ABSOLUTE AUTO 0.07 K/mm3 (0.00-0.68); EOSINOPHILS PERCENT AUTO 2 % (0-6); Hematocrit 40.8 % (33.0-51.0); IMMATURE GRAN ABSOLUTE AUTO 0.01 K/mm3 (0.00-0.10); IMMATURE GRAN PERCENT AUTO 0 % (0-1); LYMPHOCYTES ABSOLUTE AUTO 0.91 K/mm3 (0.84-5.20); LYMPHOCYTES PERCENT AUTO 22 % (21-46); MONOCYTES PERCENT AUTO 10 % (4-13); Mean Corpuscular HGB 28.4 pg (26.0-34.0); Mean Corpuscular HGB Conc 31.9 g/dL (31.5-36.5); Mean Corpuscular Volume 89 fL (80-100); Mean Platelet Volume 10.6 fL (9.1-12.4); NEUTROPHILS ABSOLUTE AUTO 2.63 K/mm3 (1.96-9.15); NEUTROPHILS PERCENT AUTO 65 % (41-73); Platelet Count 242 K/mm3 (150-400); RDW Standard Deviation 39.1 fL (35.1-46.3); Red Blood Cell Count 4.57 M/mm3 (3.80-5.20); White Blood Cell Count 4.06 K/mm3 (4.00-11.30)
== END 2019-07-21 10:12 | disposition home or self-care (01) ==
LOC: ATC 00:18
PROVIDERS: Registered Nurse Oncology
DX: C50.811 Malignant neoplasm of overlapping sites of right female breast (principal); D50.9 Iron deficiency anemia, unspecified; Z17.0 Estrogen receptor positive status [ER+]; F41.9 Anxiety disorder, unspecified; Z88.8 Allergy status to other drugs, medicaments and biological substances
CPT/HCPCS: 36591; 80053; 82306; 82728; 83540; 83550; 85025; J1642

== ENCOUNTER 2020-01-10 06:46 | Day surgery (SDC) | payer OTHER ==
[~2020-01-10] VITALS: Ht 162.6 cm; Wt 59.2 kg
--- NOTE | 2020-01-10 10:51 | NUR ---
01/10/20 1051 Esther Jane PT.WITH REDNESS & ITCHING AROUND MEDIPORT SITE & ON EKG PAD SITES. PT. HAS AN ALLERGY TO ADHESIVE. PT. WAS GIVEN BENADRYL IN PREOP & THEN AGAIN IN SD. WHEN MEDIPORT WAS DEACCESSED THERE WAS A SMALL AMT. OF BLEEDING, PRESSURE HELD WITH GAUZE FOR SMALL AMT OF OOZING. SITE LEFT OPEN TO AIR DUE TO ADHESIVE ALLERGY.
== END 2020-01-10 10:05 | disposition home or self-care (01) ==
LOC: ORSCSDS 06:46
PROVIDERS: Internal Medicine Gastroenterology
PROC: 0DJD8ZZ Inspection of Lower Intestinal Tract, Via Natural or Artificial Opening Endoscopic (ICD-10-PCS; principal; 2020-01-10 08:30)
DX: Z86.010 Personal history of colon polyps (principal); Z85.3 Personal history of malignant neoplasm of breast
CPT/HCPCS: J1200; J1642; J2704; J7120

== ENCOUNTER → 2021-02-14 | Outpatient (CLI) | payer OTHER ==
[2021-02-14 10:06] LABS: BASOPHILS ABSOLUTE AUTO 0.03 K/mm3 (0.00-0.23); BASOPHILS PERCENT AUTO 1 % (0-2); EOSINOPHILS ABSOLUTE AUTO 0.09 K/mm3 (0.00-0.68); EOSINOPHILS PERCENT AUTO 2 % (0-6); Hematocrit 38.1 % (33.0-51.0); Hemoglobin 12.6 g/dL (11.5-16.0); IMMATURE GRAN ABSOLUTE AUTO 0.01 K/mm3 (0.00-0.10); IMMATURE GRAN PERCENT AUTO 0 % (0-1); LYMPHOCYTES ABSOLUTE AUTO 1.41 K/mm3 (0.84-5.20); LYMPHOCYTES PERCENT AUTO 27 % (21-46); MONOCYTES ABSOLUTE AUTO 0.41 K/mm3 (0.16-1.47); MONOCYTES PERCENT AUTO 8 % (4-13); Mean Corpuscular HGB 30.2 pg (26.0-34.0); Mean Corpuscular HGB Conc 33.1 g/dL (31.5-36.5); Mean Corpuscular Volume 91 fL (80-100); Mean Platelet Volume 9.3 fL (9.1-12.4); NEUTROPHILS ABSOLUTE AUTO 3.23 K/mm3 (1.96-9.15); NEUTROPHILS PERCENT AUTO 62 % (41-73); Platelet Count 237 K/mm3 (150-400); RDW Standard Deviation 40.2 fL (35.1-46.3); Red Blood Cell Count 4.17 M/mm3 (3.80-5.20); White Blood Cell Count 5.18 K/mm3 (4.00-11.30)
[2021-02-14 10:25] LABS: Alanine Aminotransfer (ALT/SGP 32 U/L (12-78); Albumin, Blood 3.5 g/dL (3.4-5.0); Albumin/Globulin Ratio 1.1 (0.8-1.8); Alk Phos 100 U/L (50-136); Anion Gap 4 mmol/L (6-16); Aspartate Aminotrans (AST/SGOT 38 U/L (12-37); Bilirubin, Total 0.3 mg/dL (0.1-1.0); Blood Urea Nitrogen 11 mg/dL (8-24); CO2, Blood 29 mmol/L (21-32); Calcium, Blood 7.9 mg/dL (8.5-10.1); Chloride, Blood 110 mmol/L (98-108); Creatinine, Blood 0.61 mg/dL (0.40-1.00); Globulin, Blood 3.1 g/dL (2.2-4.0); Glomerular Filtration Rate >60 (60-); Glucose, Blood 89 mg/dL (70-99); Potassium, Blood 3.9 mmol/L (3.5-5.5); Sodium, Blood 143 mmol/L (136-145); Total Protein, Blood 6.6 g/dL (6.4-8.2)
== END | disposition home or self-care (01) ==
LOC: LAB SHORT 09:37
PROVIDERS: Internal Medicine Hematology & Oncology
DX: C50.919 Malignant neoplasm of unspecified site of unspecified female breast (principal); D64.9 Anemia, unspecified
CPT/HCPCS: 36415; 80053; 82306; 85025

== ENCOUNTER 2021-03-23 01:58 | Emergency (ER) | payer OTHER ==
[~2021-03-23] VITALS: Ht 162.6 cm; Wt 61.2 kg
[2021-03-23 06:23] LABS: BASOPHILS ABSOLUTE AUTO 0.02 K/mm3 (0.00-0.23); BASOPHILS PERCENT AUTO 0 % (0-2); EOSINOPHILS ABSOLUTE AUTO 0.01 K/mm3 (0.00-0.68); EOSINOPHILS PERCENT AUTO 0 % (0-6); Hematocrit 27.3 % (33.0-51.0); Hemoglobin 9.3 g/dL (11.5-16.0); IMMATURE GRAN ABSOLUTE AUTO 0.03 K/mm3 (0.00-0.10); IMMATURE GRAN PERCENT AUTO 1 % (0-1); LYMPHOCYTES PERCENT AUTO 13 % (21-46); MONOCYTES ABSOLUTE AUTO 0.37 K/mm3 (0.16-1.47); MONOCYTES PERCENT AUTO 8 % (4-13); Mean Corpuscular HGB 31.2 pg (26.0-34.0); Mean Corpuscular HGB Conc 34.1 g/dL (31.5-36.5); Mean Corpuscular Volume 92 fL (80-100); Mean Platelet Volume 9.2 fL (9.1-12.4); NEUTROPHILS ABSOLUTE AUTO 3.57 K/mm3 (1.96-9.15); NEUTROPHILS PERCENT AUTO 78 % (41-73); Platelet Count 148 K/mm3 (150-400); RDW Coefficient Variation 11.7 % (11.7-14.2); RDW Standard Deviation 39.7 fL (35.1-46.3); Red Blood Cell Count 2.98 M/mm3 (3.80-5.20)
[2021-03-23 06:47] LABS: Anion Gap 9 mmol/L (6-16); Blood Urea Nitrogen 14 mg/dL (8-24); Bun/Creatinine Ratio 24.8 (12.0-20.0); CO2, Blood 27 mmol/L (21-32); Calcium, Blood 8.8 mg/dL (8.5-10.1); Chloride, Blood 104 mmol/L (98-108); Creatinine, Blood 0.56 mg/dL (0.40-1.00); Glomerular Filtration Rate >60 (60-); Glucose, Blood 83 mg/dL (70-99); Potassium, Blood 3.5 mmol/L (3.5-5.5); Sodium, Blood 140 mmol/L (136-145)
== END 2021-03-23 07:25 | disposition home or self-care (01) ==
LOC: ER 01:58
PROVIDERS: Student in an Organized Health Care Education/Training Program
DX: R00.2 Palpitations (principal); Z91.048 Other nonmedicinal substance allergy status; Z88.8 Allergy status to other drugs, medicaments and biological substances
CPT/HCPCS: 80048; 85025; 93005; 93010; 96374; 99285-25; A9270; J1642; J2405; J7030

== ENCOUNTER → 2021-08-15 | Outpatient (CLI) | payer OTHER | END | disposition home or self-care (01) | LOC: LAB 09:11 → LAB SHORT 09:11 | DX: J02.9 Acute pharyngitis, unspecified (principal) | CPT/HCPCS: 87081; 87147 ==

== ENCOUNTER 2021-10-18 07:15 | Day surgery (SDC) | payer OTHER ==
[~2021-10-18] VITALS: Ht 162.6 cm; Wt 57.3 kg
--- NOTE | 2021-10-18 11:41 | NUR ---
Patient up to Ambulate independently. Gait steady. Dressing to procedure site clean, dry, intact with no visible drainage, swelling, erythema or bruising noted. Discharged via wheelchair to private car for ride home.
== END 2021-10-18 11:39 | disposition home or self-care (01) ==
LOC: ORSCMMR 07:15 → ORD 08:15 → ORSCMMR 08:15
PROVIDERS: Surgery
PROC: 0JPT0WZ Removal of Totally Implantable Vascular Access Device from Trunk Subcutaneous Tissue and Fascia, Open Approach (ICD-10-PCS; principal; 2021-10-18 08:15)
DX: Z85.3 Personal history of malignant neoplasm of breast (principal); F41.9 Anxiety disorder, unspecified; Z45.2 Encounter for adjustment and management of vascular access device
CPT/HCPCS: J0690; J1100; J2250; J2370; J2405; J2704; J2795; J3010; J7120

== ENCOUNTER → 2022-03-25 | Outpatient (CLI) | payer OTHER ==
[2022-03-25 16:47] LABS: BASOPHILS ABSOLUTE AUTO 0.03 K/mm3 (0.00-0.23); BASOPHILS PERCENT AUTO 0 % (0-2); EOSINOPHILS PERCENT AUTO 0 % (0-6); Hematocrit 40.2 % (33.0-51.0); Hemoglobin 13.6 g/dL (11.5-16.0); IMMATURE GRAN ABSOLUTE AUTO 0.02 K/mm3 (0.00-0.10); IMMATURE GRAN PERCENT AUTO 0 % (0-1); LYMPHOCYTES ABSOLUTE AUTO 0.73 K/mm3 (0.84-5.20); LYMPHOCYTES PERCENT AUTO 7 % (21-46); MONOCYTES ABSOLUTE AUTO 0.46 K/mm3 (0.16-1.47); MONOCYTES PERCENT AUTO 4 % (4-13); Mean Corpuscular HGB 31.6 pg (26.0-34.0); Mean Corpuscular HGB Conc 33.8 g/dL (31.5-36.5); Mean Corpuscular Volume 94 fL (80-100); Mean Platelet Volume 9.2 fL (9.1-12.4); NEUTROPHILS PERCENT AUTO 88 % (41-73); Platelet Count 196 K/mm3 (150-400); RDW Coefficient Variation 11.9 % (11.7-14.2); White Blood Cell Count 10.64 K/mm3 (4.00-11.30)
[2022-03-25 16:57] LABS: Albumin, Blood 4.1 g/dL (3.4-5.0); Albumin/Globulin Ratio 1.1 (0.8-1.8); Bilirubin, Total 0.9 mg/dL (0.1-1.0); Bun/Creatinine Ratio 14.3 (12.0-20.0); Calcium, Blood 9.1 mg/dL (8.5-10.1); Creatinine, Blood 0.91 mg/dL (0.40-1.00); Globulin, Blood 3.9 g/dL (2.2-4.0)
== END | disposition home or self-care (01) ==
LOC: LAB 16:40 → LAB SHORT 16:40
PROVIDERS: Physician Assistant Medical
DX: R21 Rash and other nonspecific skin eruption (principal)
CPT/HCPCS: 80053; 85025

== ENCOUNTER 2023-01-10 22:54 | Emergency (ER) | payer OTHER ==
[~2023-01-10] VITALS: Ht 162.6 cm; Wt 55.3 kg
[2023-01-10 23:33] LABS: BASOPHILS ABSOLUTE AUTO 0.04 K/mm3 (0.00-0.23); BASOPHILS PERCENT AUTO 0 % (0-2); EOSINOPHILS ABSOLUTE AUTO 0.01 K/mm3 (0.00-0.68); EOSINOPHILS PERCENT AUTO 0 % (0-6); Hematocrit 41.3 % (33.0-51.0); Hemoglobin 13.1 g/dL (11.5-16.0); IMMATURE GRAN ABSOLUTE AUTO 0.04 K/mm3 (0.00-0.10); IMMATURE GRAN PERCENT AUTO 0 % (0-1); LYMPHOCYTES ABSOLUTE AUTO 1.28 K/mm3 (0.84-5.20); LYMPHOCYTES PERCENT AUTO 10 % (21-46); MONOCYTES ABSOLUTE AUTO 0.61 K/mm3 (0.16-1.47); MONOCYTES PERCENT AUTO 5 % (4-13); Mean Corpuscular HGB 27.5 pg (26.0-34.0); Mean Corpuscular HGB Conc 31.7 g/dL (31.5-36.5); Mean Corpuscular Volume 87 fL (80-100); Mean Platelet Volume 8.7 fL (9.1-12.4); NEUTROPHILS ABSOLUTE AUTO 10.36 K/mm3 (1.96-9.15); NEUTROPHILS PERCENT AUTO 84 % (41-73); Platelet Count 270 K/mm3 (150-400); RDW Coefficient Variation 11.8 % (11.7-14.2); RDW Standard Deviation 37.7 fL (35.1-46.3); Red Blood Cell Count 4.77 M/mm3 (3.80-5.20); White Blood Cell Count 12.34 K/mm3 (4.00-11.30)
[2023-01-10 23:50] LABS: Albumin, Blood 4.1 g/dL (3.4-5.0); Bilirubin, Total 0.4 mg/dL (0.1-1.0); Bun/Creatinine Ratio 17.5 (12.0-20.0); Calcium, Blood 9.2 mg/dL (8.5-10.1); Creatinine, Blood 0.74 mg/dL (0.40-1.00); Globulin, Blood 4.3 g/dL (2.2-4.0); Potassium, Blood 3.2 mmol/L (3.5-5.5); Total Protein, Blood 8.4 g/dL (6.4-8.2)
[2023-01-11] MEDS ORDERED: CEPH500 PO (02:54)
[2023-01-11 03:14] VITALS: BP 125/85
== END 2023-01-11 03:30 | disposition home or self-care (01) ==
LOC: ER 22:54
PROVIDERS: Student in an Organized Health Care Education/Training Program
DX: L03.313 Cellulitis of chest wall (principal); Z88.1 Allergy status to other antibiotic agents; Z85.3 Personal history of malignant neoplasm of breast; Z90.13 Acquired absence of bilateral breasts and nipples
CPT/HCPCS: 36415; 80053; 83605; 85025; 87040; 96365; 96375; 99283-25; A9270; J0696; J1885

== ENCOUNTER 2024-08-19 16:11 | Emergency (ER) | payer OTHER ==
[~2024-08-19] VITALS: Ht 162.6 cm; Wt 68.0 kg
[2024-08-19 16:16] VITALS: BP 152/98
[2024-08-19] MEDS ORDERED: Ondansetron HCl 2 MG / ML 2ML Vial IV ONE (16:30)
[2024-08-19 17:03] LABS: BASOPHILS ABSOLUTE AUTO 0.04 K/mm3 (0.00-0.23); BASOPHILS PERCENT AUTO 1 % (0-2); EOSINOPHILS ABSOLUTE AUTO 0.06 K/mm3 (0.00-0.68); EOSINOPHILS PERCENT AUTO 1 % (0-6); Hematocrit 42.1 % (33.0-51.0); Hemoglobin 13.9 g/dL (11.5-16.0); IMMATURE GRAN ABSOLUTE AUTO 0.01 K/mm3 (0.00-0.10); IMMATURE GRAN PERCENT AUTO 0 % (0-1); LYMPHOCYTES ABSOLUTE AUTO 1.19 K/mm3 (0.84-5.20); LYMPHOCYTES PERCENT AUTO 22 % (21-46); MONOCYTES ABSOLUTE AUTO 0.50 K/mm3 (0.16-1.47); MONOCYTES PERCENT AUTO 9 % (4-13); Mean Corpuscular HGB Conc 33.0 g/dL (31.5-36.5); Mean Corpuscular Volume 90 fL (80-100); NEUTROPHILS ABSOLUTE AUTO 3.57 K/mm3 (1.96-9.15); NEUTROPHILS PERCENT AUTO 67 % (41-73); NRBC ABSOLUTE 0.00 K/mm3 (0.00-0.02); NRBC Auto 0.0 /100 WBC (0.0-0.2); Platelet Count 291 K/mm3 (150-400); RDW Coefficient Variation 11.7 % (11.7-14.2); RDW Standard Deviation 38.5 fL (35.1-46.3)
[2024-08-19 17:22] LABS: Alanine Aminotransfer (ALT/SGP 41.0 U/L (12-78); Albumin, Blood 4.4 g/dL (3.4-5.0); Albumin/Globulin Ratio 1.2 (0.8-1.8); Anion Gap 7.0 mmol/L (3-11); Aspartate Aminotrans (AST/SGOT 45.0 U/L (12-37); Bilirubin, Total 0.3 mg/dL (0.1-1.0); Blood Urea Nitrogen 8.0 mg/dL (8-24); CO2, Blood 28.0 mmol/L (21-32); Calcium, Blood 9.9 mg/dL (8.5-10.1); Chloride, Blood 105.0 mmol/L (98-108); Creatinine, Blood 0.61 mg/dL (0.40-1.00); Globulin, Blood 3.8 g/dL (2.2-4.0); Glucose, Blood 108.0 mg/dL (70-99); Potassium, Blood 3.6 mmol/L (3.5-5.5); Sodium, Blood 136.0 mmol/L (136-145); Total Protein, Blood 8.2 g/dL (6.4-8.2)
[2024-08-19 19:15] LABS: Source, Urine Clean Catch
[2024-08-19 19:26] LABS: Bilirubin, Urine Neg (Neg); Glucose Qualitative, Urine Neg (Neg); Ketones, Urine Neg (Neg); Leukocyte Esterase, Urine Neg (Neg); Protein, Urine Neg (Neg); Specific Gravity, Urine 1.010 (1.003-1.022); Urobilinogen, Urine NORM (Normal)
[2024-08-19 19:31] LABS: Color, Urine Pale Yellow (P-Yellow)
[2024-08-19] MEDS ORDERED: RX Prepack 2 Tabs Ondansetron ODT 4MG UD ONE (19:40)
== END 2024-08-19 20:08 | disposition home or self-care (01) ==
LOC: ER 16:11
PROVIDERS: Student in an Organized Health Care Education/Training Program
DX: R07.9 Chest pain, unspecified (principal); R10.9 Unspecified abdominal pain; R11.2 Nausea with vomiting, unspecified; Z91.048 Other nonmedicinal substance allergy status; Z79.2 Long term (current) use of antibiotics; Z90.711 Acquired absence of uterus with remaining cervical stump; Z90.722 Acquired absence of ovaries, bilateral; Z90.49 Acquired absence of other specified parts of digestive tract
CPT/HCPCS: 71275; 74177; 80053; 81003; 81025; 83690; 84484; 85025; 93005; 93010; 96374-59; 99285-25; A9270; J2405; Q9967